=== PATIENT | female | born 1935 | race African-American/Black ===

== ENCOUNTER 2018-07-24 06:54 | Inpatient (IN) ==
[2018-07-24] MEDS ORDERED: SODIUM CHLORIDE 0.9% 1,000 ML IV STA (07:26)
[2018-07-24] MEDS ORDERED: INSULIN REGULAR 100 UNIT/ML IV STA ×2 (07:26→08:10)
[2018-07-24 07:39] LABS: Apearance,Urine CLOUDY (Clear); Bacteria,Urine Occasional /HPF (Few); Bilirubin,Urine Negative (Negative); Blood, Urine Small mg/dL (Negative); Glucose,Urine (UA) >=500 mg/dL (Negative); Ketones,Urine Negative (Negative); Mucus,Urine Occasional /LPF (Occasional); Nitrite,Urine Negative (Negative); Protein,Urine Negative; RBC,Urine 3 /HPF (0-4); Squamous Epithelial Cell,Urine Occasional /HPF (0-10); Urine Color Yellow (Yellow); Urine Specific Gravity 1.027 (1.001-1.035); Urine Urobilinogen < 2.0 EU/DL (0.2-1.0); WBC,Urine 124 /HPF (0-6)
[2018-07-24 07:45] LABS: PT Patient Result 10.6 SECS; Partial Thromboplastin Time 21.8 SECS (0-40)
[2018-07-24] MEDS ORDERED: INSULIN REGULAR 100 UNIT/ML ONE ×2 (07:46→08:11)
[2018-07-24 07:54] LABS: Barbiturates Screen,Urine Negative (Negative); Basophils % 0.1 % (0.0-0.8); Benzodiazepines Screen,Urine Negative (Negative); Cannabinoid Screen,Urine Negative (Negative); Hematocrit 45.5 VOL% (35.7-47.0); Hemoglobin 13.2 GM/DL (12.0-16.0); Immature Granulocytes % 0.3 %; Immature Granulocytes Absolute 0.03 #; Lymphocytes # 1.3 10*3/uL (1.4-4.0); Lymphocytes % 13.6 % (21.3-54.2); Mean Corpuscular Hemoglobin 28 PG (27-34); Mean Corpuscular Volume 97.2 FL (87-102); Mean Platelet Volume 12.2 FL (9.6-12.0); Monocytes # 0.5 10*3/uL (0.11-0.8); Neutrophils # 7.5 10*3/uL (1.4-7.4); Opiate Screen,Urine Negative (Negative); Phencyclidine Screen,Urine Negative (Negative); Platelet Count 262 T/CUMM (130-400); Red Blood Count 4.68 MC/CUMM (3.8-5.5); Red Cell Distribution Width 14.9 % (9.3-17.3); White Blood Count 9.3 T/CUMM (4-12)
[2018-07-24 07:59] LABS: Alanine Aminotransferase 73 U/L (13-56); Albumin 3.1 G/DL (3.4-5.0); Alkaline Phosphatase 167 U/L (45-117); Aspartate Amino Transferase 33 U/L (0-37); Bilirubin,Total < 0.39 MG/DL (0.2-1.0); Blood Urea Nitrogen 64 MG/DL (7-18); Calcium 9.3 MG/DL (8.5-10.1); Osmolality,Calculated 377.4 MOS/KG (273-304); Potassium 3.3 MMOL/L (3.5-5.1); Sodium 154 MMOL/L (136-145); Total Protein 8.2 G/DL (6.4-8.3); Troponin I < 0.015 NG/ML (0.00-0.045)
[2018-07-24 08:02] LABS: Glucose 1090 MG/DL (74-106)
[2018-07-24] MEDS ORDERED: SODIUM CHLORIDE 0.9% 2,000 ML IV STA (08:09)
[2018-07-24] MEDS ORDERED: LEVOFLOXACIN INJ 750 MG in PREMIX 1 EACH IV STA (08:10)
[2018-07-24] MEDS ORDERED: ALBUTEROL 2.5 MG/3 ML NEB RESP TX PRN (08:52)
[2018-07-24] MEDS ORDERED: MAGNESIUM SULF RIDER 2 GM in PREMIX 1 EACH IV PRN (08:56)
[2018-07-24] MEDS ORDERED: MAGNESIUM SULF RIDER 4 GM in PREMIX 1 EACH IV PRN (08:56)
[2018-07-24] MEDS ORDERED: SODIUM PHOSPHATE INJ 17 MMOL in SODIUM CHLORIDE 0.9% 250 ML IV PRN (08:56)
[2018-07-24] MEDS ORDERED: DEXTROSE 50% 25 GM/50 ML VIAL IV PRN ×2 (08:56)
[2018-07-24] MEDS ORDERED: SODIUM CHLORIDE 0.45% 1,000 ML IV SCH (09:00)
[2018-07-24] MEDS ORDERED: cefTRIAXone 1,000 MG in SYRINGE 1 EACH IV SCH (09:00)
[2018-07-24 09:39] LABS: ABG Base Excess -8.7 MMOL/L (-2.5-2.5); ABG HCO3 17.4 MMOL/L (20-26); ABG Oxygen Saturation 94.3 % (95-100); ABG PCO2 34.2 MM HG (35-48); ABG PH 7.302 (7.35-7.45); ABG PO2 80.9 MM HG (80-95); ABG TCO2 15.1 MMOL/L (23-27); Allen Test Positive; Pt O2 Delivery Device Room Air
[2018-07-24 11:37] LABS: Calcium 8.2 MG/DL (8.5-10.1); Osmolality,Calculated 373.6 MOS/KG (273-304)
[2018-07-24 11:39] LABS: Potassium 2.5 MMOL/L (3.5-5.1)
[2018-07-24] MEDS ORDERED: INSULIN REGULAR DRIP 100 ML IV SCH (13:00)
[2018-07-24] MEDS: SODIUM CHLOR 0.45% KCL 20 MEQ 20 MEQ/1,000 ML BAG IV SCH ×2 (14:30→22:20)
[2018-07-24] MEDS: PANTOPRAZOLE 40 MG VIAL IV SCH (15:07)
[2018-07-24] MEDS: ENOXAPARIN 30 MG/0.3 ML SYRINGE SUBCUT SCH (15:08)
[2018-07-24 17:22] LABS: Calcium 8.8 MG/DL (8.5-10.1); Osmolality,Calculated 354.6 MOS/KG (273-304); Potassium 2.9 MMOL/L (3.5-5.1)
[2018-07-24] MEDS: cefTRIAXone 1,000 MG in SYRINGE 1 EACH IV SCH (17:56)
[2018-07-24 22:11] LABS: Calcium 8.8 MG/DL (8.5-10.1); Osmolality,Calculated 345.5 MOS/KG (273-304); Potassium 3.2 MMOL/L (3.5-5.1)
[2018-07-25] MEDS ORDERED: INSULIN REGULAR 100 UNIT/ML SUBCUT SCH
[2018-07-25 03:21] LABS: Calcium 8.7 MG/DL (8.5-10.1); Osmolality,Calculated 345.3 MOS/KG (273-304); Potassium 3.7 MMOL/L (3.5-5.1)
[2018-07-25 03:31] LABS: Basophils % 0.2 % (0.0-0.8); Eosinophils % 0.1 % (0.00-10.9); Hematocrit 39.1 VOL% (35.7-47.0); Immature Granulocytes % 0.5 %; Immature Granulocytes Absolute 0.06 #; Lymphocytes # 2.8 10*3/uL (1.4-4.0); Lymphocytes % 22.7 % (21.3-54.2); Mean Corpuscular HGB Conc 29.2 GM/DL (32-36); Mean Corpuscular Hemoglobin 28 PG (27-34); Mean Corpuscular Volume 96.5 FL (87-102); Mean Platelet Volume 11.6 FL (9.6-12.0); Monocytes # 0.7 10*3/uL (0.11-0.8); Monocytes % 5.7 % (1.7-12.7); Neutrophils # 8.8 10*3/uL (1.4-7.4); Neutrophils % 70.8 % (38.7-73.9); Platelet Count 209 T/CUMM (130-400); Red Blood Count 4.05 MC/CUMM (3.8-5.5); Red Cell Distribution Width 14.7 % (9.3-17.3); White Blood Count 12.4 T/CUMM (4-12)
[2018-07-25 03:38] LABS: Hemoglobin 11.4 GM/DL (12.0-16.0)
[2018-07-25] MEDS: SODIUM CHLORIDE 0.45% 1,000 ML IV SCH ×3 (03:40→20:15)
[2018-07-25] MEDS: INSULIN REGULAR 100 UNIT/ML SUBCUT SCH ×5 (04:49→21:45)
[2018-07-25] MEDS: SODIUM CHLOR 0.45% KCL 20 MEQ 20 MEQ/1,000 ML BAG IV SCH ×2 (04:50→11:29)
[2018-07-25 07:56] LABS: Calcium 8.7 MG/DL (8.5-10.1); Osmolality,Calculated 337.9 MOS/KG (273-304); Potassium 3.6 MMOL/L (3.5-5.1)
[2018-07-25] MEDS: ENOXAPARIN 30 MG/0.3 ML SYRINGE SUBCUT SCH (09:22)
[2018-07-25] MEDS: PANTOPRAZOLE 40 MG VIAL IV SCH (09:22)
[2018-07-25 12:45] LABS: Calcium 8.6 MG/DL (8.5-10.1); Osmolality,Calculated 330.3 MOS/KG (273-304)
[2018-07-25] MEDS: cefTRIAXone 1,000 MG in SYRINGE 1 EACH IV SCH (17:39)
[2018-07-25 18:59] LABS: Calcium 8.3 MG/DL (8.5-10.1); Osmolality,Calculated 324.6 MOS/KG (273-304); Potassium 3.4 MMOL/L (3.5-5.1)
[2018-07-25] MEDS: LACTULOSE 20 GM/30 ML UDCUP PO SCH (21:55)
[2018-07-25] MEDS: ATORVASTATIN 20 MG TABLET PO SCH (21:55)
[2018-07-25] MEDS: DIVALPROEX SPRINKLE 125 MG CAPSULE PO SCH (21:55)
[2018-07-25] MEDS: PANTOPRAZOLE 40 MG TABLET PO SCH (21:55)
[2018-07-25] MEDS: CALCIUM (CARBONATE)/VITAMIN D 600 MG-400 UNIT TABLET PO SCH (21:55)
[2018-07-25] MEDS: BISACODYL 10 MG SUPP RECTAL SCH (23:22)
[2018-07-26] MEDS: INSULIN REGULAR 100 UNIT/ML SUBCUT SCH ×6 (00:03→20:44)
[2018-07-26 05:41] LABS: Calcium 8.3 MG/DL (8.5-10.1); Osmolality,Calculated 313.2 MOS/KG (273-304); Potassium 3.3 MMOL/L (3.5-5.1)
[2018-07-26] MEDS: SODIUM CHLORIDE 0.45% 1,000 ML IV SCH ×3 (05:44→22:12)
[2018-07-26 05:52] LABS: Basophils % 0.1 % (0.0-0.8); Eosinophils % 0.1 % (0.00-10.9); Hemoglobin 9.9 GM/DL (12.0-16.0); Immature Granulocytes % 0.3 %; Immature Granulocytes Absolute 0.03 #; Lymphocytes # 3.3 10*3/uL (1.4-4.0); Lymphocytes % 38.4 % (21.3-54.2); Mean Corpuscular HGB Conc 29.1 GM/DL (32-36); Mean Corpuscular Hemoglobin 28 PG (27-34); Mean Corpuscular Volume 95.5 FL (87-102); Mean Platelet Volume 12.2 FL (9.6-12.0); Monocytes # 0.5 10*3/uL (0.11-0.8); Monocytes % 5.3 % (1.7-12.7); Neutrophils # 4.8 10*3/uL (1.4-7.4); Neutrophils % 55.8 % (38.7-73.9); Platelet Count 171 T/CUMM (130-400); Red Blood Count 3.56 MC/CUMM (3.8-5.5); Red Cell Distribution Width 14.6 % (9.3-17.3); White Blood Count 8.7 T/CUMM (4-12)
[2018-07-26 06:01] LABS: Hematocrit 33.5 VOL% (35.7-47.0)
[2018-07-26] MEDS: PANTOPRAZOLE 40 MG TABLET PO SCH ×2 (06:26→20:44)
[2018-07-26 06:56] LABS: Calcium 8.1 MG/DL (8.5-10.1); Osmolality,Calculated 309.4 MOS/KG (273-304); Potassium 3.5 MMOL/L (3.5-5.1)
[2018-07-26] MEDS: CALCIUM (CARBONATE)/VITAMIN D 600 MG-400 UNIT TABLET PO SCH ×2 (09:43→20:44)
[2018-07-26] MEDS: CHOLECALCIFEROL 1,000 UNIT TABLET PO SCH (09:43)
[2018-07-26] MEDS: ESCITALOPRAM 10 MG TABLET PO SCH (09:44)
[2018-07-26] MEDS: ENOXAPARIN 30 MG/0.3 ML SYRINGE SUBCUT SCH (09:44)
[2018-07-26] MEDS: LACTULOSE 20 GM/30 ML UDCUP PO SCH ×2 (09:44→20:44)
[2018-07-26] MEDS: POLYETHYLENE GLYCOL POWDER 17 GM PACK PO SCH (09:45)
[2018-07-26] MEDS: DIVALPROEX SPRINKLE 125 MG CAPSULE PO SCH ×2 (09:45→20:44)
[2018-07-26 12:31] LABS: Calcium 7.8 MG/DL (8.5-10.1); Osmolality,Calculated 300.3 MOS/KG (273-304); Potassium 4.5 MMOL/L (3.5-5.1)
[2018-07-26] MEDS: cefTRIAXone 1,000 MG in SYRINGE 1 EACH IV SCH (17:12)
[2018-07-26 18:43] LABS: Calcium 8.1 MG/DL (8.5-10.1); Osmolality,Calculated 298.1 MOS/KG (273-304); Potassium 3.5 MMOL/L (3.5-5.1)
[2018-07-26] MEDS: PANTOPRAZOLE 40 MG VIAL IV SCH (19:21)
[2018-07-26] MEDS: ATORVASTATIN 20 MG TABLET PO SCH (20:44)
[2018-07-27] MEDS: INSULIN REGULAR 100 UNIT/ML SUBCUT SCH ×6 (00:50→21:34)
[2018-07-27 05:02] LABS: Calcium 8.3 MG/DL (8.5-10.1); Osmolality,Calculated 302.9 MOS/KG (273-304); Potassium 3.5 MMOL/L (3.5-5.1)
[2018-07-27] MEDS: SODIUM CHLORIDE 0.45% 1,000 ML IV SCH ×3 (05:07→17:58)
[2018-07-27] MEDS: PANTOPRAZOLE 40 MG TABLET PO SCH ×2 (06:28→21:40)
[2018-07-27] MEDS ORDERED: ENOXAPARIN 40 MG/0.4 ML SYRINGE SUBCUT SCH (09:00)
[2018-07-27] MEDS: POLYETHYLENE GLYCOL POWDER 17 GM PACK PO SCH (09:06)
[2018-07-27] MEDS: ESCITALOPRAM 10 MG TABLET PO SCH (09:06)
[2018-07-27] MEDS: CHOLECALCIFEROL 1,000 UNIT TABLET PO SCH (09:07)
[2018-07-27] MEDS: LACTULOSE 20 GM/30 ML UDCUP PO SCH ×2 (09:07→21:40)
[2018-07-27] MEDS: DIVALPROEX SPRINKLE 125 MG CAPSULE PO SCH ×2 (09:07→21:54)
[2018-07-27] MEDS: CALCIUM (CARBONATE)/VITAMIN D 600 MG-400 UNIT TABLET PO SCH ×2 (09:07→21:40)
[2018-07-27] MEDS ORDERED: SODIUM CHLORIDE 23.4% CONC INJ 38.5 MEQ in STERILE WATER INJ 1,000 ML IV SCH (10:30)
[2018-07-27 14:20] LABS: Calcium 8.3 MG/DL (8.5-10.1); Osmolality,Calculated 294.6 MOS/KG (273-304); Potassium 3.6 MMOL/L (3.5-5.1)
[2018-07-27] MEDS ORDERED: DEXTROSE 50% 25 GM/50 ML VIAL IV PRN (17:32)
[2018-07-27] MEDS ORDERED: GLUCAGON 1 MG VIAL IM PRN (17:32)
[2018-07-27] MEDS: BISACODYL 10 MG SUPP RECTAL SCH (18:06)
[2018-07-27] MEDS: cefTRIAXone 1,000 MG in SYRINGE 1 EACH IV SCH (21:35)
[2018-07-27] MEDS: ATORVASTATIN 20 MG TABLET PO SCH (21:40)
[2018-07-28] MEDS: INSULIN REGULAR 100 UNIT/ML SUBCUT SCH ×6 (01:39→20:53)
[2018-07-28 05:38] LABS: Basophils % 0.2 % (0.0-0.8); Eosinophils # 0.1 10*3/uL (0.0-0.87); Eosinophils % 2.2 % (0.00-10.9); Hematocrit 31.8 VOL% (35.7-47.0); Hemoglobin 9.8 GM/DL (12.0-16.0); Immature Granulocytes % 0.8 %; Immature Granulocytes Absolute 0.04 #; Lymphocytes # 1.9 10*3/uL (1.4-4.0); Lymphocytes % 37.2 % (21.3-54.2); Mean Corpuscular HGB Conc 30.8 GM/DL (32-36); Mean Corpuscular Hemoglobin 28 PG (27-34); Mean Corpuscular Volume 90.3 FL (87-102); Mean Platelet Volume 11.4 FL (9.6-12.0); Monocytes # 0.3 10*3/uL (0.11-0.8); Monocytes % 5.9 % (1.7-12.7); Neutrophils # 2.8 10*3/uL (1.4-7.4); Neutrophils % 53.7 % (38.7-73.9); Platelet Count 133 T/CUMM (130-400); Red Blood Count 3.52 MC/CUMM (3.8-5.5); Red Cell Distribution Width 13.8 % (9.3-17.3); White Blood Count 5.1 T/CUMM (4-12)
[2018-07-28] MEDS: PANTOPRAZOLE 40 MG TABLET PO SCH ×2 (05:42→21:31)
[2018-07-28 06:05] LABS: Calcium 7.9 MG/DL (8.5-10.1); Osmolality,Calculated 300.3 MOS/KG (273-304); Potassium 3.2 MMOL/L (3.5-5.1)
[2018-07-28] MEDS: SODIUM CHLORIDE 0.45% 1,000 ML IV SCH ×3 (08:54→22:36)
[2018-07-28] MEDS: CHOLECALCIFEROL 1,000 UNIT TABLET PO SCH (09:33)
[2018-07-28] MEDS: LACTULOSE 20 GM/30 ML UDCUP PO SCH ×2 (09:33→21:33)
[2018-07-28] MEDS: DIVALPROEX SPRINKLE 125 MG CAPSULE PO SCH (09:33)
[2018-07-28] MEDS: POLYETHYLENE GLYCOL POWDER 17 GM PACK PO SCH (09:34)
[2018-07-28] MEDS: CALCIUM (CARBONATE)/VITAMIN D 600 MG-400 UNIT TABLET PO SCH ×2 (09:34→21:31)
[2018-07-28] MEDS: POTASSIUM CHLORIDE 20 MEQ TABLET PO SCH ×2 (09:35→12:34)
[2018-07-28] MEDS: ESCITALOPRAM 10 MG TABLET PO SCH (09:35)
[2018-07-28] MEDS: INSULIN GLARGINE 100 UNIT/ML SUBCUT SCH (10:23)
[2018-07-28] MEDS: VALPROIC ACID 250 MG/5 ML UDCUP PO SCH ×2 (12:34→21:32)
[2018-07-28] MEDS: cefTRIAXone 1,000 MG in SYRINGE 1 EACH IV SCH (21:24)
[2018-07-28] MEDS: ATORVASTATIN 20 MG TABLET PO SCH (21:31)
[2018-07-29] MEDS: INSULIN REGULAR 100 UNIT/ML SUBCUT SCH ×6 (00:35→21:39)
[2018-07-29] MEDS: PANTOPRAZOLE 40 MG TABLET PO SCH ×2 (05:15→21:45)
[2018-07-29 05:20] LABS: Calcium 8.1 MG/DL (8.5-10.1); Osmolality,Calculated 293.6 MOS/KG (273-304)
[2018-07-29] MEDS: LACTULOSE 20 GM/30 ML UDCUP PO SCH ×2 (08:49→21:46)
[2018-07-29] MEDS: POLYETHYLENE GLYCOL POWDER 17 GM PACK PO SCH (08:50)
[2018-07-29] MEDS: CHOLECALCIFEROL 1,000 UNIT TABLET PO SCH (08:50)
[2018-07-29] MEDS: ESCITALOPRAM 10 MG TABLET PO SCH (08:50)
[2018-07-29] MEDS: POTASSIUM CHLORIDE 20 MEQ/15 ML UDCUP NG SCH ×2 (08:50→21:46)
[2018-07-29] MEDS: CALCIUM (CARBONATE)/VITAMIN D 600 MG-400 UNIT TABLET PO SCH ×2 (08:50→21:45)
[2018-07-29] MEDS: VALPROIC ACID 250 MG/5 ML UDCUP PO SCH ×2 (08:50→21:45)
[2018-07-29] MEDS: INSULIN GLARGINE 100 UNIT/ML SUBCUT SCH (08:51)
[2018-07-29] MEDS: cefTRIAXone 1,000 MG in SYRINGE 1 EACH IV SCH (21:39)
[2018-07-29] MEDS: ATORVASTATIN 20 MG TABLET PO SCH (21:45)
[2018-07-30] MEDS: INSULIN REGULAR 100 UNIT/ML SUBCUT SCH ×3 (00:40→10:01)
[2018-07-30 05:12] LABS: Calcium 8.7 MG/DL (8.5-10.1); Osmolality,Calculated 288.6 MOS/KG (273-304); Prealbumin 14.5 MG/DL (20-40)
[2018-07-30] MEDS: PANTOPRAZOLE 40 MG TABLET PO SCH (05:47)
[2018-07-30] MEDS ORDERED: KETAMINE 500 MG/10 ML VIAL ONE (07:47)
[2018-07-30] MEDS ORDERED: LANSOPRAZOLE ODT 30 MG TABLET PEG SCH (09:00)
[2018-07-30] MEDS ORDERED: ETOMIDATE 20 MG/10 ML VIAL IV ONE (10:00)
[2018-07-30] MEDS ORDERED: PROPOFOL 200 MG/20 ML VIAL IV ONE (10:00)
[2018-07-30] MEDS ORDERED: LIDOCAINE 100 MG/5 ML SYRINGE ONE (10:00)
[2018-07-30] MEDS: INSULIN GLARGINE 100 UNIT/ML SUBCUT SCH (10:01)
[2018-07-30] MEDS: CHOLECALCIFEROL 1,000 UNIT TABLET PO SCH (11:21)
[2018-07-30] MEDS: VALPROIC ACID 250 MG/5 ML UDCUP PO SCH (11:22)
[2018-07-30] MEDS: LACTULOSE 20 GM/30 ML UDCUP PO SCH (11:23)
[2018-07-30] MEDS: CALCIUM (CARBONATE)/VITAMIN D 600 MG-400 UNIT TABLET PO SCH (11:23)
[2018-07-30] MEDS: POLYETHYLENE GLYCOL POWDER 17 GM PACK PO SCH (11:23)
[2018-07-30] MEDS: ESCITALOPRAM 10 MG TABLET PO SCH (11:23)
[2018-07-30] MEDS: POTASSIUM CHLORIDE 20 MEQ/15 ML UDCUP NG SCH (11:23)
[2018-07-30 11:41] VITALS: BP 143/65
== END 2018-07-30 12:00 | DRG 638 ==
LOC: EDUNIT# → EDBD → N.ED 06:54 → N.EDINP 08:50 → SUATTDRO 08:50 → N.CC 22:08 → N.2E 07-26 17:59
PROVIDERS: ADMIT Internal Medicine; ATTEND Internal Medicine
PROC: EGDWPEG (ICD-10-PCS; 2018-07-30 08:35)

== ENCOUNTER 2019-07-03 19:16 | Observation (INO) ==
[2019-07-03] MEDS ORDERED: PANTOPRAZOLE 40 MG VIAL IV STA (19:42)
[2019-07-03] MEDS ORDERED: ONDANSETRON 4 MG/2 ML VIAL IV STA (19:42)
[2019-07-03] MEDS ORDERED: SODIUM CHLORIDE 0.9% 500 ML IV STA (19:42)
[2019-07-03 20:24] LABS: Basophils % 0.2 % (0.0-0.8); Eosinophils % 0.4 % (0.00-10.9); Hematocrit 41.9 VOL% (35.7-47.0); Hemoglobin 12.8 GM/DL (12.0-16.0); Immature Granulocytes % 0.4 %; Immature Granulocytes Absolute 0.04 #; Lymphocytes # 2.1 10*3/uL (1.4-4.0); Lymphocytes % 21.5 % (21.3-54.2); Mean Corpuscular HGB Conc 30.5 GM/DL (32-36); Mean Corpuscular Volume 93.7 FL (87-102); Mean Platelet Volume 10.4 FL (9.6-12.0); Monocytes % 4.9 % (1.7-12.7); Neutrophils % 72.6 % (38.7-73.9); Platelet Count 246 T/CUMM (130-400); Red Blood Count 4.47 MC/CUMM (3.8-5.5); Red Cell Distribution Width 13.7 % (9.3-17.3); White Blood Count 9.7 T/CUMM (4-12)
[2019-07-03 20:56] LABS: Alanine Aminotransferase 73 U/L (13-56); Albumin 3.3 G/DL (3.4-5.0); Alkaline Phosphatase 107 U/L (45-117); Amylase 56 U/L (25-115); Aspartate Amino Transferase 25 U/L (0-37); Bilirubin,Total < 0.39 MG/DL (0.2-1.0); Blood Urea Nitrogen 14 MG/DL (7-18); Calcium 8.9 MG/DL (8.5-10.1); Estimated Glom Filtration Rate 81 ML/MIN; Glucose 137 MG/DL (74-106); Osmolality,Calculated 281.4 MOS/KG (273-304); Total Protein 7.3 G/DL (6.4-8.3)
[2019-07-03 21:07] LABS: Apearance,Urine CLOUDY (Clear); Bacteria,Urine Few /HPF (Few); Bilirubin,Urine Negative (Negative); Blood, Urine Small mg/dL (Negative); Glucose,Urine (UA) Negative (Negative); Ketones,Urine Negative (Negative); Mucus,Urine Few /LPF (Occasional); Nitrite,Urine Positive (Negative); Protein,Urine Negative; RBC,Urine 17 /HPF (0-4); Squamous Epithelial Cell,Urine Occasional /HPF (0-10); Urine Color Yellow (Yellow); Urine Specific Gravity 1.013 (1.001-1.035); Urine Urobilinogen < 2.0 EU/DL (0.2-1.0); WBC,Urine 318 /HPF (0-6)
[2019-07-03] MEDS ORDERED: LEVOFLOXACIN INJ 500 MG in PREMIX 1 EACH IV STA (22:23)
[2019-07-04] MEDS ORDERED: ONDANSETRON 4 MG/2 ML VIAL IV PRN (04:59)
[2019-07-04] MEDS ORDERED: ACETAMINOPHEN 325 MG TABLET PEG PRN (04:59)
[2019-07-04] MEDS ORDERED: LACTULOSE 20 GM/30 ML UDCUP PEG PRN (04:59)
[2019-07-04] MEDS ORDERED: PROMETHAZINE 25 MG/1 ML VIAL IM PRN (04:59)
[2019-07-04] MEDS ORDERED: SODIUM CHLORIDE 0.9% 1,000 ML IV SCH (05:00)
[2019-07-04] MEDS ORDERED: DEXTROSE 50% 25 GM/50 ML SYRINGE IV PRN (05:13)
[2019-07-04] MEDS ORDERED: GLUCAGON 1 MG VIAL IM PRN (05:13)
[2019-07-04] MEDS ORDERED: DEXTROSE 5% NACL 0.9% 1,000 ML IV SCH (05:30)
[2019-07-04 07:16] LABS: Basophils % 0.2 % (0.0-0.8); Eosinophils # 0.2 10*3/uL (0.0-0.87); Eosinophils % 1.9 % (0.00-10.9); Hematocrit 41.1 VOL% (35.7-47.0); Hemoglobin 12.8 GM/DL (12.0-16.0); Immature Granulocytes % 0.4 %; Immature Granulocytes Absolute 0.04 #; Lymphocytes # 2.4 10*3/uL (1.4-4.0); Lymphocytes % 25.4 % (21.3-54.2); Mean Corpuscular HGB Conc 31.1 GM/DL (32-36); Mean Corpuscular Volume 91.9 FL (87-102); Mean Platelet Volume 11.8 FL (9.6-12.0); Monocytes % 5.1 % (1.7-12.7); Platelet Count 174 T/CUMM (130-400); Red Blood Count 4.47 MC/CUMM (3.8-5.5); Red Cell Distribution Width 13.8 % (9.3-17.3); White Blood Count 9.3 T/CUMM (4-12)
[2019-07-04 07:29] LABS: Calcium 9.5 MG/DL (8.5-10.1); Osmolality,Calculated 277.4 MOS/KG (273-304)
[2019-07-04 07:39] LABS: Hypochromasia 1+; Ovalocytes Slight
[2019-07-04] MEDS: INSULIN LISPRO 100 UNIT/ML SUBCUT SCH ×2 (07:40→12:40)
[2019-07-04] MEDS ORDERED: POLYETHYLENE GLYCOL POWDER 17 GM PACK PO SCH ×2 (08:00→21:00)
[2019-07-04] MEDS ORDERED: ENOXAPARIN 40 MG/0.4 ML SYRINGE SUBCUT SCH (08:00)
[2019-07-04] MEDS ORDERED: LACTULOSE 20 GM/30 ML UDCUP PEG SCH (09:00)
[2019-07-04] MEDS ORDERED: DOCUSATE SODIUM 100 MG CAPSULE PO SCH (09:30)
[2019-07-04] MEDS ORDERED: POLYETHYLENE GLYCOL POWDER 17 GM PACK PO ONE (11:28)
[2019-07-04 16:21] VITALS: BP 116/67
[2019-07-04] MEDS ORDERED: LEVOFLOXACIN INJ 500 MG in PREMIX 1 EACH IV SCH (23:00)
[2019-07-05] MEDS ORDERED: BISACODYL 10 MG SUPP RECTAL SCH (19:00)
== END 2019-07-04 17:14 ==
LOC: EDBD → EDUNIT# → N.ED 19:16 → N.EDINP 19:16 → SUATTDRO 07-04 03:43 → N.5E 07-04 04:04
PROVIDERS: ADMIT Internal Medicine; ATTEND Internal Medicine

== ENCOUNTER 2020-07-26 13:20 | Inpatient (IN) ==
[2020-07-26] MEDS ORDERED: ONDANSETRON 4 MG/2 ML VIAL ONE (14:13)
[2020-07-26] MEDS ORDERED: ONDANSETRON 4 MG/2 ML VIAL IV STA (15:04)
[2020-07-26 15:12] LABS: Bilirubin,Urine Negative (Negative); Blood, Urine Negative (Negative); Glucose,Urine (UA) Negative (Negative); Ketones,Urine Negative (Negative); Mucus,Urine Occasional /LPF (Occasional); Nitrite,Urine Negative (Negative); Protein,Urine 30 MG/DL; Squamous Epithelial Cell,Urine Occasional /HPF (0-10); Urine Appearance Slightly Hazy (Clear); Urine Color Yellow (Yellow); Urine Specific Gravity 1.017 (1.001-1.035); Urine Urobilinogen < 2.0 EU/DL (0.2-1.0); WBC,Urine 19 /HPF (0-6)
[2020-07-26] MEDS ORDERED: PIPERACILLIN/TAZOBACTAM 3,375 MG in SODIUM CHLORIDE 0.9% 100 ML IV STA (15:22)
[2020-07-26 15:24] LABS: Albumin 3.3 G/DL (3.4-5.0); Bilirubin,Total 0.4 MG/DL (0.2-1.0); Calcium 9.4 MG/DL (8.5-10.1); Potassium 3.9 MMOL/L (3.5-5.1); Total Protein 7.4 G/DL (5.0-7.5)
[2020-07-26 15:26] LABS: Basophils % 0.1 % (0.0-0.8); Hematocrit 41.5 VOL% (35.7-47.0); Hemoglobin 12.8 GM/DL (12.0-16.0); Immature Granulocytes % 0.1 %; Immature Granulocytes Absolute 0.01 #; Lymphocytes # 1.4 10*3/uL (1.4-4.0); Lymphocytes % 19.6 % (21.3-54.2); Mean Corpuscular HGB Conc 30.8 GM/DL (32-36); Mean Corpuscular Volume 93.9 FL (87-102); Monocytes % 2.2 % (1.7-12.7); Platelet Count 233 T/CUMM (130-400); Red Blood Count 4.42 MC/CUMM (3.8-5.5); Red Cell Distribution Width 14.4 % (9.3-17.3); White Blood Count 7.2 T/CUMM (4-12)
[2020-07-26] MEDS ORDERED: SODIUM CHLORIDE 0.9% 1,000 ML IV STA (15:27)
[2020-07-26 15:31] LABS: Band Neutrophils 10 % (0-10); Eosinophils 1 % (0-10); Lymphocytes 18 % (20-55); Segmented Neutrophils 68 % (50-85); Total Cells Counted 100
[2020-07-26 15:32] LABS: Anisocytosis Slight; Hypochromasia Slight; Platelet Estimate Adequate; Polychromasia Few
[2020-07-26] MEDS ORDERED: GLUCAGON 1 MG VIAL IM PRN (16:08)
[2020-07-26] MEDS ORDERED: ONDANSETRON 4 MG/2 ML VIAL IV PRN (16:08)
[2020-07-26] MEDS ORDERED: DEXTROSE 50% 25 GM/50 ML VIAL IV PRN (16:08)
[2020-07-26] MEDS ORDERED: SODIUM PHOSPHATE ENEMA 133 ML BOTTLE RECTAL PRN (16:19)
[2020-07-26] MEDS: INSULIN LISPRO 100 UNIT/ML SUBCUT SCH ×2 (17:28→21:00)
[2020-07-26] MEDS: POTASSIUM CHLORIDE INJ 10 MEQ in SODIUM CHLORIDE 0.9% 1,000 ML IV SCH (18:06)
[2020-07-26] MEDS: ENOXAPARIN 40 MG/0.4 ML SYRINGE SUBCUT SCH (18:06)
[2020-07-26] MEDS: guaiFENesin 200 MG/10 ML UDCUP PO SCH (18:06)
[2020-07-26] MEDS: ALBUTEROL 2.5 MG/3 ML NEB RESP TX SCH (20:15)
[2020-07-26] MEDS: DOCUSATE SODIUM 100 MG/10 ML UDCUP PEG SCH (21:35)
[2020-07-26] MEDS: ACETAMINOPHEN 500 MG TABLET PEG SCH (21:35)
[2020-07-26] MEDS: LACTULOSE 20 GM/30 ML UDCUP PEG SCH (21:35)
[2020-07-26] MEDS: ATORVASTATIN 20 MG TABLET PEG SCH (21:35)
[2020-07-27] MEDS: PIPERACILLIN/TAZOBACTAM 3,375 MG in SODIUM CHLORIDE 0.9% 100 ML IV SCH ×3 (00:23→16:15)
[2020-07-27] MEDS: ALBUTEROL 2.5 MG/3 ML NEB RESP TX SCH ×4 (01:42→19:32)
[2020-07-27 03:51] LABS: Basophils % 0.2 % (0.0-0.8); Hematocrit 37.4 VOL% (35.7-47.0); Hemoglobin 11.3 GM/DL (12.0-16.0); Immature Granulocytes % 0.2 %; Immature Granulocytes Absolute 0.02 #; Lymphocytes # 1.5 10*3/uL (1.4-4.0); Lymphocytes % 17.8 % (21.3-54.2); Mean Corpuscular HGB Conc 30.2 GM/DL (32-36); Mean Corpuscular Volume 95.4 FL (87-102); Monocytes % 5.4 % (1.7-12.7); Neutrophils % 76.4 % (38.7-73.9); Platelet Count 242 T/CUMM (130-400); Red Blood Count 3.92 MC/CUMM (3.8-5.5); Red Cell Distribution Width 14.4 % (9.3-17.3); White Blood Count 8.6 T/CUMM (4-12)
[2020-07-27 04:10] LABS: Risk Ratio 1.78; VLDL CHOLESTEROL 11.6 MG/DL
[2020-07-27 04:12] LABS: Albumin 2.6 G/DL (3.4-5.0); Bilirubin,Total 0.7 MG/DL (0.2-1.0); Calcium 9.1 MG/DL (8.5-10.1); Osmolality,Calculated 287.8 MOS/KG (273-304); Total Protein 6.5 G/DL (5.0-7.5)
[2020-07-27 04:16] LABS: Band Neutrophils 16 % (0-10); Lymphocytes 21 % (20-55); Platelet Estimate Adequate; Segmented Neutrophils 56 % (50-85); Total Cells Counted 100
[2020-07-27 04:17] LABS: Hypochromasia 1+; Microcytosis 1+
[2020-07-27] MEDS: guaiFENesin 200 MG/10 ML UDCUP PO SCH ×2 (05:30→17:57)
[2020-07-27] MEDS: CHOLECALCIFEROL 1,000 UNIT TABLET PEG SCH (09:31)
[2020-07-27] MEDS: ACETAMINOPHEN 500 MG TABLET PEG SCH ×2 (09:31→22:42)
[2020-07-27] MEDS: ESCITALOPRAM 10 MG TABLET PEG SCH (09:32)
[2020-07-27] MEDS: LACTULOSE 20 GM/30 ML UDCUP PEG SCH ×2 (09:32→22:41)
[2020-07-27] MEDS: DOCUSATE SODIUM 100 MG/10 ML UDCUP PEG SCH ×2 (09:32→22:41)
[2020-07-27] MEDS: INSULIN LISPRO 100 UNIT/ML SUBCUT SCH ×4 (09:49→19:34)
[2020-07-27] MEDS: INSULIN GLARGINE 100 UNIT/ML SUBCUT SCH (09:49)
[2020-07-27] MEDS: POTASSIUM CHLORIDE INJ 10 MEQ in SODIUM CHLORIDE 0.9% 1,000 ML IV SCH (10:07)
[2020-07-27] MEDS ORDERED: SODIUM CHLORIDE 0.9% 500 ML IV ONE (11:41)
[2020-07-27] MEDS: SODIUM CHLORIDE 0.9% 1,000 ML IV SCH (12:36)
[2020-07-27] MEDS: VANCOMYCIN INJ 1,000 MG in SODIUM CHLORIDE 0.9% 250 ML IV SCH (14:17)
[2020-07-27] MEDS ORDERED: SODIUM CHLORIDE 0.9% 250 ML IV ONE (14:20)
[2020-07-27] MEDS: POLYETHYLENE GLYCOL POWDER 17 GM PACK PEG SCH (22:41)
[2020-07-27] MEDS: BISACODYL 10 MG SUPP RECTAL SCH (22:41)
[2020-07-27] MEDS: ENOXAPARIN 40 MG/0.4 ML SYRINGE SUBCUT SCH (22:42)
[2020-07-27] MEDS: ATORVASTATIN 20 MG TABLET PEG SCH (22:42)
[2020-07-28] MEDS: VANCOMYCIN INJ 1,000 MG in SODIUM CHLORIDE 0.9% 250 ML IV SCH ×3 (00:29→23:46)
[2020-07-28] MEDS: ALBUTEROL 2.5 MG/3 ML NEB RESP TX SCH ×4 (01:10→19:45)
[2020-07-28] MEDS: PIPERACILLIN/TAZOBACTAM 3,375 MG in SODIUM CHLORIDE 0.9% 100 ML IV SCH ×3 (02:16→16:34)
[2020-07-28 06:22] LABS: Basophils % 0.2 % (0.0-0.8); Eosinophils # 0.1 10*3/uL (0.0-0.87); Eosinophils % 0.9 % (0.00-10.9); Hematocrit 29.7 VOL% (35.7-47.0); Hemoglobin 9.1 GM/DL (12.0-16.0); Immature Granulocytes % 1.4 %; Immature Granulocytes Absolute 0.12 #; Lymphocytes # 2.1 10*3/uL (1.4-4.0); Lymphocytes % 23.7 % (21.3-54.2); Mean Corpuscular HGB Conc 30.6 GM/DL (32-36); Mean Corpuscular Volume 94.9 FL (87-102); Mean Platelet Volume 10.3 FL (9.6-12.0); Monocytes % 4.6 % (1.7-12.7); Neutrophils % 69.2 % (38.7-73.9); Platelet Count 200 T/CUMM (130-400); Red Blood Count 3.13 MC/CUMM (3.8-5.5); Red Cell Distribution Width 14.6 % (9.3-17.3); White Blood Count 8.7 T/CUMM (4-12)
[2020-07-28 06:42] LABS: Albumin 2.1 G/DL (3.4-5.0); Bilirubin,Total 0.4 MG/DL (0.2-1.0); Osmolality,Calculated 288.6 MOS/KG (273-304); Potassium 3.4 MMOL/L (3.5-5.1); Total Protein 5.7 G/DL (6.4-8.2)
[2020-07-28 06:47] LABS: Band Neutrophils 2 % (0-10); Hypochromasia 1+; Lymphocytes 25 % (20-55); Microcytosis 1+; Platelet Estimate Adequate; Segmented Neutrophils 70 % (50-85); Total Cells Counted 100
[2020-07-28] MEDS: INSULIN LISPRO 100 UNIT/ML SUBCUT SCH ×4 (07:29→21:23)
[2020-07-28] MEDS ORDERED: MAGNESIUM SULF RIDER 4 GM in PREMIX 1 EACH IV PRN (09:34)
[2020-07-28] MEDS ORDERED: MAGNESIUM SULF RIDER 2 GM in PREMIX 1 EACH IV PRN (09:34)
[2020-07-28] MEDS ORDERED: POTASSIUM CHLORIDE RIDER 10 MEQ in PREMIX 1 EACH IV PRN (09:34)
[2020-07-28] MEDS: ESCITALOPRAM 10 MG TABLET PEG SCH (10:06)
[2020-07-28] MEDS: POLYETHYLENE GLYCOL POWDER 17 GM PACK PEG SCH ×2 (10:06→21:03)
[2020-07-28] MEDS: CHOLECALCIFEROL 1,000 UNIT TABLET PEG SCH (10:06)
[2020-07-28] MEDS: LACTULOSE 20 GM/30 ML UDCUP PEG SCH ×3 (10:07→21:04)
[2020-07-28] MEDS: DOCUSATE SODIUM 100 MG/10 ML UDCUP PEG SCH ×2 (10:07→21:04)
[2020-07-28] MEDS: guaiFENesin 200 MG/10 ML UDCUP PO SCH ×2 (10:07→21:04)
[2020-07-28] MEDS: ACETAMINOPHEN 500 MG TABLET PEG SCH ×2 (10:07→21:04)
[2020-07-28] MEDS: INSULIN GLARGINE 100 UNIT/ML SUBCUT SCH (11:17)
[2020-07-28] MEDS: SODIUM CHLORIDE 0.9% 1,000 ML IV SCH (11:17)
[2020-07-28] MEDS: SODIUM CHLORIDE 0.45% 1,000 ML IV SCH (17:36)
[2020-07-28] MEDS: ATORVASTATIN 20 MG TABLET PEG SCH (21:04)
[2020-07-28] MEDS: ENOXAPARIN 40 MG/0.4 ML SYRINGE SUBCUT SCH (21:04)
[2020-07-29] MEDS: ALBUTEROL 2.5 MG/3 ML NEB RESP TX SCH ×4 (00:24→19:32)
[2020-07-29] MEDS: PIPERACILLIN/TAZOBACTAM 3,375 MG in SODIUM CHLORIDE 0.9% 100 ML IV SCH ×3 (01:06→15:44)
[2020-07-29] MEDS: VANCOMYCIN INJ 1,000 MG in SODIUM CHLORIDE 0.9% 250 ML IV SCH ×2 (01:30→12:36)
[2020-07-29 05:37] LABS: Basophils % 0.2 % (0.0-0.8); Eosinophils # 0.3 10*3/uL (0.0-0.87); Eosinophils % 3.5 % (0.00-10.9); Hematocrit 27.5 VOL% (35.7-47.0); Hemoglobin 8.6 GM/DL (12.0-16.0); Immature Granulocytes % 0.8 %; Immature Granulocytes Absolute 0.07 #; Lymphocytes # 2.1 10*3/uL (1.4-4.0); Lymphocytes % 24.8 % (21.3-54.2); Mean Corpuscular HGB Conc 31.3 GM/DL (32-36); Mean Corpuscular Volume 92.3 FL (87-102); Mean Platelet Volume 10.7 FL (9.6-12.0); Monocytes % 5.2 % (1.7-12.7); Neutrophils % 65.5 % (38.7-73.9); Platelet Count 186 T/CUMM (130-400); Red Blood Count 2.98 MC/CUMM (3.8-5.5); Red Cell Distribution Width 14.5 % (9.3-17.3); White Blood Count 8.3 T/CUMM (4-12)
[2020-07-29 06:01] LABS: Band Neutrophils 3 % (0-10); Eosinophils 1 % (0-10); Hypochromasia 1+; Lymphocytes 30 % (20-55); Segmented Neutrophils 60 % (50-85); Total Cells Counted 100
[2020-07-29 06:02] LABS: Microcytosis 1+; Ovalocytes Slight; Platelet Estimate Adequate
[2020-07-29 06:04] LABS: Calcium 8.8 MG/DL (8.5-10.1); Osmolality,Calculated 286.7 MOS/KG (273-304); Potassium 3.5 MMOL/L (3.5-5.1)
[2020-07-29] MEDS: INSULIN LISPRO 100 UNIT/ML SUBCUT SCH ×4 (08:13→21:13)
[2020-07-29] MEDS: ACETAMINOPHEN 500 MG TABLET PEG SCH (08:15)
[2020-07-29] MEDS: LACTULOSE 20 GM/30 ML UDCUP PEG SCH ×2 (08:15→21:12)
[2020-07-29] MEDS: DOCUSATE SODIUM 100 MG/10 ML UDCUP PEG SCH ×2 (08:15→21:12)
[2020-07-29] MEDS: POLYETHYLENE GLYCOL POWDER 17 GM PACK PEG SCH ×2 (08:15→21:13)
[2020-07-29] MEDS: CHOLECALCIFEROL 1,000 UNIT TABLET PEG SCH (08:16)
[2020-07-29] MEDS: ESCITALOPRAM 10 MG TABLET PEG SCH (08:17)
[2020-07-29] MEDS: INSULIN GLARGINE 100 UNIT/ML SUBCUT SCH (08:19)
[2020-07-29] MEDS: guaiFENesin 200 MG/10 ML UDCUP PO SCH ×2 (08:21→21:12)
[2020-07-29] MEDS: SODIUM CHLORIDE 0.45% 1,000 ML IV SCH (08:34)
[2020-07-29] MEDS ORDERED: ACETAMINOPHEN 500 MG TABLET PEG PRN (09:49)
[2020-07-29] MEDS: BISACODYL 10 MG SUPP RECTAL SCH (21:12)
[2020-07-29] MEDS: ATORVASTATIN 20 MG TABLET PEG SCH (21:12)
[2020-07-29] MEDS: ENOXAPARIN 40 MG/0.4 ML SYRINGE SUBCUT SCH (21:15)
[2020-07-30] MEDS: VANCOMYCIN INJ 1,000 MG in SODIUM CHLORIDE 0.9% 250 ML IV SCH
[2020-07-30] MEDS: PIPERACILLIN/TAZOBACTAM 3,375 MG in SODIUM CHLORIDE 0.9% 100 ML IV SCH ×3 (01:00→15:38)
[2020-07-30] MEDS: ALBUTEROL 2.5 MG/3 ML NEB RESP TX SCH ×4 (01:32→19:38)
[2020-07-30 06:05] LABS: Basophils % 0.3 % (0.0-0.8); Eosinophils # 0.2 10*3/uL (0.0-0.87); Eosinophils % 3.4 % (0.00-10.9); Hematocrit 29.4 VOL% (35.7-47.0); Hemoglobin 9.3 GM/DL (12.0-16.0); Immature Granulocytes % 0.7 %; Immature Granulocytes Absolute 0.05 #; Lymphocytes # 2.3 10*3/uL (1.4-4.0); Lymphocytes % 32.7 % (21.3-54.2); Mean Corpuscular HGB Conc 31.6 GM/DL (32-36); Mean Corpuscular Volume 93.9 FL (87-102); Mean Platelet Volume 10.9 FL (9.6-12.0); Neutrophils % 56.9 % (38.7-73.9); Platelet Count 235 T/CUMM (130-400); Red Blood Count 3.13 MC/CUMM (3.8-5.5); Red Cell Distribution Width 14.1 % (9.3-17.3)
[2020-07-30] MEDS: INSULIN LISPRO 100 UNIT/ML SUBCUT SCH ×4 (08:17→20:59)
[2020-07-30] MEDS: LACTULOSE 20 GM/30 ML UDCUP PEG SCH ×2 (09:05→20:57)
[2020-07-30] MEDS: guaiFENesin 200 MG/10 ML UDCUP PO SCH (09:05)
[2020-07-30] MEDS: ESCITALOPRAM 10 MG TABLET PEG SCH (09:05)
[2020-07-30] MEDS: INSULIN GLARGINE 100 UNIT/ML SUBCUT SCH (09:05)
[2020-07-30] MEDS: DOCUSATE SODIUM 100 MG/10 ML UDCUP PEG SCH ×2 (09:05→20:57)
[2020-07-30] MEDS: POLYETHYLENE GLYCOL POWDER 17 GM PACK PEG SCH ×2 (09:06→20:58)
[2020-07-30] MEDS: ATORVASTATIN 20 MG TABLET PEG SCH (20:58)
[2020-07-30] MEDS: guaiFENesin 200 MG/10 ML UDCUP PO PRN (20:58)
[2020-07-30] MEDS: ENOXAPARIN 40 MG/0.4 ML SYRINGE SUBCUT SCH (20:58)
[2020-07-31] MEDS: PIPERACILLIN/TAZOBACTAM 3,375 MG in SODIUM CHLORIDE 0.9% 100 ML IV SCH ×2 (00:06→10:00)
[2020-07-31] MEDS: ALBUTEROL 2.5 MG/3 ML NEB RESP TX SCH ×3 (01:13→13:52)
[2020-07-31] MEDS: INSULIN LISPRO 100 UNIT/ML SUBCUT SCH ×2 (07:12→11:08)
[2020-07-31] MEDS: POLYETHYLENE GLYCOL POWDER 17 GM PACK PEG SCH (08:35)
[2020-07-31] MEDS: guaiFENesin 200 MG/10 ML UDCUP PO PRN (08:36)
[2020-07-31] MEDS: DOCUSATE SODIUM 100 MG/10 ML UDCUP PEG SCH (08:37)
[2020-07-31] MEDS: LACTULOSE 20 GM/30 ML UDCUP PEG SCH (08:37)
[2020-07-31] MEDS: ESCITALOPRAM 10 MG TABLET PEG SCH (08:37)
[2020-07-31 11:26] VITALS: BP 134/72
== END 2020-07-31 14:51 | DRG 177 ==
LOC: EDBD → EDUNIT# → N.ED 13:20 → SUATTDRO 16:08 → N.EDINP 16:08 → N.5E 16:30
PROVIDERS: ADMIT Internal Medicine; ATTEND Internal Medicine

== ENCOUNTER 2022-01-29 10:29 | Observation (INO) ==
[2022-01-29 12:47] LABS: Alanine Aminotransferase 47 U/L (13-56); Albumin 3.2 G/DL (3.4-5.0); Alkaline Phosphatase 128 U/L (45-117); Aspartate Amino Transferase 27 U/L (0-37); Bilirubin,Total < 0.39 MG/DL (0.20-1.00); Blood Urea Nitrogen 20 MG/DL (7-18); Calcium 9.8 MG/DL (8.5-10.1); Carbon Dioxide 27 MMOL/L (21-32); Chloride 109 MMOL/L (98-107); Glucose 130 MG/DL (74-106); Osmolality,Calculated 287.1 MOS/KG (273-304); Potassium 3.5 MMOL/L (3.5-5.1); Sodium 142 MMOL/L (136-145)
[2022-01-29 13:33] LABS: Basophils % 0.3 % (0.0-0.8); Eosinophils # 0.1 10*3/uL (0.0-0.87); Eosinophils % 2.3 % (0.00-10.9); Hematocrit 41.2 VOL% (35.7-47.0); Hemoglobin 12.9 GM/DL (12.0-16.0); Immature Granulocytes % 0.2 %; Immature Granulocytes Absolute 0.01 #; Lymphocytes # 2.4 10*3/uL (1.4-4.0); Lymphocytes % 39.4 % (21.3-54.2); Mean Corpuscular HGB Conc 31.3 GM/DL (32-36); Mean Corpuscular Volume 91.2 FL (87-102); Monocytes # 0.5 10*3/uL (0.11-0.8); Monocytes % 8.7 % (1.7-12.7); Neutrophils % 49.1 % (38.7-73.9); Platelet Count 190 T/CUMM (130-400); Red Blood Count 4.52 MC/CUMM (3.8-5.5); Red Cell Distribution Width 14.3 % (9.3-17.3); White Blood Count 6.1 T/CUMM (4-12)
[2022-01-29] MEDS ORDERED: DEXTROSE 10% 250 ML BAG IV PRN (16:33)
[2022-01-29] MEDS ORDERED: GLUCAGON 1 MG VIAL IM PRN (16:33)
[2022-01-29] MEDS ORDERED: hydrALAZINE 20 MG/1 ML VIAL IV PRN (16:33)
[2022-01-29] MEDS ORDERED: ONDANSETRON 4 MG/2 ML VIAL IV PRN (16:33)
[2022-01-29] MEDS ORDERED: ACETAMINOPHEN 325 MG TABLET PO PRN (16:33)
[2022-01-29] MEDS ORDERED: POTASSIUM CHLORIDE 20 MEQ TABLET PO ONE (16:54)
[2022-01-29] MEDS ORDERED: LACTATED RINGERS 1,000 ML IV SCH (17:00)
[2022-01-29] MEDS ORDERED: ENOXAPARIN 40 MG/0.4 ML SYRINGE SUBCUT SCH (18:00)
[2022-01-29 19:24] LABS: RBC,Urine <1 /HPF (0-4); Squamous Epithelial Cell,Urine Occasional /HPF (0-10)
[2022-01-29 19:25] LABS: Bilirubin,Urine Negative (Negative); Blood, Urine Negative (Negative); Glucose,Urine (UA) Negative (Negative); Ketones,Urine Negative (Negative); Nitrite,Urine Negative (Negative); Protein,Urine Negative (Negative); Urine Appearance Clear (Clear); Urine Color Yellow (Yellow)
[2022-01-29] MEDS: LACTULOSE 20 GM/30 ML UDCUP PEG SCH (19:27)
[2022-01-29] MEDS: INSULIN LISPRO 100 UNIT/ML SUBCUT SCH (19:33)
[2022-01-29] MEDS: METOCLOPRAMIDE 10 MG/10 ML UDCUP PEG SCH (20:47)
[2022-01-29] MEDS: POLYETHYLENE GLYCOL POWDER 17 GM PACK PEG SCH (20:47)
[2022-01-29] MEDS: DOCUSATE SODIUM 100 MG CAPSULE PO SCH (20:47)
[2022-01-30] MEDS: INSULIN LISPRO 100 UNIT/ML SUBCUT SCH ×3 (00:43→12:41)
[2022-01-30] MEDS: LACTULOSE 20 GM/30 ML UDCUP PEG SCH ×2 (00:44→09:39)
[2022-01-30 04:09] LABS: Calcium 9.3 MG/DL (8.5-10.1); Osmolality,Calculated 286.1 MOS/KG (273-304); Potassium 3.4 MMOL/L (3.5-5.1)
[2022-01-30 04:30] LABS: Basophils % 0.3 % (0.0-0.8); Eosinophils # 0.1 10*3/uL (0.0-0.87); Eosinophils % 2.3 % (0.00-10.9); Hematocrit 37.5 VOL% (35.7-47.0); Hemoglobin 11.7 GM/DL (12.0-16.0); Immature Granulocytes % 0.3 %; Immature Granulocytes Absolute 0.02 #; Lymphocytes # 2.3 10*3/uL (1.4-4.0); Lymphocytes % 38.9 % (21.3-54.2); Mean Corpuscular HGB Conc 31.2 GM/DL (32-36); Mean Corpuscular Volume 93.3 FL (87-102); Mean Platelet Volume 12.4 FL (9.6-12.0); Monocytes # 0.5 10*3/uL (0.11-0.8); Monocytes % 8.3 % (1.7-12.7); Neutrophils % 49.9 % (38.7-73.9); Platelet Count 243 T/CUMM (130-400); Red Blood Count 4.02 MC/CUMM (3.8-5.5); Red Cell Distribution Width 14.4 % (9.3-17.3)
[2022-01-30] MEDS ORDERED: ESCITALOPRAM 10 MG TABLET PEG SCH (08:00)
[2022-01-30] MEDS ORDERED: POTASSIUM BICARB EFFERVESCENT 20 MEQ TAB.EFF PO ONE (08:12)
[2022-01-30] MEDS ORDERED: MINERAL OIL ENEMA 133 ML BOTTLE RECTAL PRN (08:20)
[2022-01-30] MEDS ORDERED: CHOLECALCIFEROL 1,000 UNIT TABLET PEG SCH (09:00)
[2022-01-30] MEDS ORDERED: PANTOPRAZOLE 40 MG VIAL IV SCH (09:00)
[2022-01-30] MEDS: DOCUSATE SODIUM 100 MG CAPSULE PO SCH (09:39)
[2022-01-30] MEDS: POLYETHYLENE GLYCOL POWDER 17 GM PACK PEG SCH ×2 (09:39→15:16)
[2022-01-30] MEDS: METOCLOPRAMIDE 10 MG/10 ML UDCUP PEG SCH (09:39)
[2022-01-30 16:06] VITALS: BP 153/61
== END 2022-01-30 16:50 ==
LOC: N.ED 10:29 → N.EDINP 10:29 → N.5E 01-30 05:45
PROVIDERS: ADMIT Internal Medicine; ATTEND Internal Medicine

== ENCOUNTER 2022-04-25 19:35 | Inpatient (IN) ==
[2022-04-25] MEDS ORDERED: SODIUM CHLORIDE 0.9% 1,000 ML IV STA (20:13)
[2022-04-25 21:00] LABS: Arterial Base Excess iSTAT -1 MMOL/L (-2.5-2.5); Arterial Bicarbonate iSTAT 24.1 MMOL/L (20-26); Arterial O2 Saturation iSTAT 93 % (95-100); Arterial PCO2 iSTAT 43 MM HG (35-48); Arterial PO2 iSTAT 71 MM HG (80-95); Arterial Total CO2 iSTAT 25 MMO/L (23-27); Arterial pH iSTAT 7.361 (7.35-7.45)
[2022-04-25 21:22] LABS: Bilirubin,Urine Negative (Negative); Blood, Urine Negative (Negative); Glucose,Urine (UA) Negative (Negative); Ketones,Urine Negative (Negative); Nitrite,Urine Negative (Negative); Protein,Urine Negative (Negative); Urine Appearance Clear (Clear); Urine Color Yellow (Yellow); Urine Specific Gravity 1.015 (1.001-1.035); Urine Urobilinogen 0.2 eU/dL (<2.0); Urine pH 5.5 (4.5-8.0)
[2022-04-25 21:25] LABS: Amorphous Crystals,Urine Few /HPF (Few); Mucus,Urine Occasional /LPF (Occasional); Squamous Epithelial Cell,Urine Occasional /HPF (0-10)
[2022-04-25 21:50] LABS: Basophils % 0.3 % (0.0-0.8); Eosinophils % 0.3 % (0.00-10.9); Hematocrit 43.4 VOL% (35.7-47.0); Immature Granulocytes % 1.1 %; Immature Granulocytes Absolute 0.13 #; Lymphocytes # 1.8 10*3/uL (1.4-4.0); Lymphocytes % 15.3 % (21.3-54.2); Mean Platelet Volume 11.4 FL (9.6-12.0); Monocytes # 0.5 10*3/uL (0.11-0.8); Monocytes % 4.3 % (1.7-12.7); Neutrophils % 78.7 % (38.7-73.9); Platelet Count 253 T/CUMM (130-400); Red Blood Count 4.57 MC/CUMM (3.8-5.5); Red Cell Distribution Width 14.1 % (9.3-17.3); White Blood Count 11.6 T/CUMM (4-12)
[2022-04-25 21:53] LABS: INR 0.9; PT Patient Result 10.5 SECS (10.1-12.1)
[2022-04-25 21:54] LABS: Alanine Aminotransferase 44 U/L (13-56); Albumin 3.6 G/DL (3.4-5.0); Alkaline Phosphatase 139 U/L (45-117); Aspartate Amino Transferase 24 U/L (0-37); Bilirubin,Total < 0.39 MG/DL (0.20-1.00); Blood Urea Nitrogen 22 MG/DL (7-18); Calcium 9.7 MG/DL (8.5-10.1); Carbon Dioxide 27 MMOL/L (21-32); Chloride 107 MMOL/L (98-107); Glucose 198 MG/DL (74-106); Potassium 3.5 MMOL/L (3.5-5.1); Sodium 143 MMOL/L (136-145); Total Protein 8.1 G/DL (6.4-8.2)
[2022-04-25] MEDS ORDERED: VANCOMYCIN INJ 1,000 MG in SODIUM CHLORIDE 0.9% 250 ML IV STA (23:37)
[2022-04-25] MEDS ORDERED: PIPERACILLIN/TAZOBACTAM 3,375 MG in SODIUM CHLORIDE 0.9% 100 ML IV STA (23:37)
[2022-04-26] MEDS ORDERED: ONDANSETRON 4 MG/2 ML VIAL IV PRN (02:22)
[2022-04-26] MEDS ORDERED: hydrALAZINE 20 MG/1 ML VIAL IV PRN (02:22)
[2022-04-26] MEDS ORDERED: LACTATED RINGERS 1,000 ML IV SCH (02:45)
[2022-04-26 06:27] LABS: Basophils % 0.1 % (0.0-0.8); Eosinophils % 0.1 % (0.00-10.9); Hemoglobin 12.7 GM/DL (12.0-16.0); Immature Granulocytes % 0.5 %; Immature Granulocytes Absolute 0.08 #; Lymphocytes # 0.7 10*3/uL (1.4-4.0); Lymphocytes % 4.7 % (21.3-54.2); Mean Corpuscular Volume 93.8 FL (87-102); Mean Platelet Volume 11.4 FL (9.6-12.0); Monocytes # 0.5 10*3/uL (0.11-0.8); Monocytes % 3.5 % (1.7-12.7); Neutrophils % 91.1 % (38.7-73.9); Platelet Count 195 T/CUMM (130-400); Red Blood Count 4.37 MC/CUMM (3.8-5.5); White Blood Count 15.6 T/CUMM (4-12)
[2022-04-26 06:41] LABS: Calcium 9.4 MG/DL (8.5-10.1); Osmolality,Calculated 289.3 MOS/KG (273-304); Potassium 4.2 MMOL/L (3.5-5.1)
[2022-04-26 06:47] LABS: Band Neutrophils 6 % (0-10); Lymphocytes 8 % (20-55); Total Cells Counted 100
[2022-04-26 06:48] LABS: Hypochromia Slight; Platelet Estimate Adequate
[2022-04-26] MEDS: INSULIN LISPRO 100 UNIT/ML SUBCUT SCH ×3 (06:48→17:04)
[2022-04-26] MEDS: PANTOPRAZOLE 40 MG VIAL IV SCH (08:55)
[2022-04-26] MEDS: amLODIPine 2.5 MG TABLET PEG SCH (08:55)
[2022-04-26] MEDS ORDERED: PANTOPRAZOLE 40 MG TABLET PO SCH (09:00)
[2022-04-26] MEDS: PIPERACILLIN/TAZOBACTAM 3,375 MG in SODIUM CHLORIDE 0.9% 100 ML IV SCH ×3 (09:11→23:00)
[2022-04-26] MEDS: ALBUTEROL/IPRATROPIUM 3 ML NEB RESP TX SCH ×3 (09:19→19:40)
[2022-04-26] MEDS: LACTULOSE 20 GM/30 ML UDCUP PEG SCH ×2 (16:24→21:20)
[2022-04-26] MEDS: VANCOMYCIN INJ 1,000 MG in SODIUM CHLORIDE 0.9% 250 ML IV SCH (17:49)
[2022-04-26] MEDS: METOCLOPRAMIDE 10 MG/10 ML UDCUP PEG SCH (21:20)
[2022-04-26] MEDS: ENOXAPARIN 40 MG/0.4 ML SYRINGE SUBCUT SCH (21:20)
[2022-04-26] MEDS: POLYETHYLENE GLYCOL POWDER 17 GM PACK PEG SCH (21:20)
[2022-04-27] MEDS: ALBUTEROL/IPRATROPIUM 3 ML NEB RESP TX SCH ×4 (00:08→18:58)
[2022-04-27] MEDS: INSULIN LISPRO 100 UNIT/ML SUBCUT SCH ×4 (00:25→17:31)
[2022-04-27] MEDS: METOCLOPRAMIDE 10 MG/10 ML UDCUP PEG SCH ×4 (02:55→20:26)
[2022-04-27 05:27] LABS: Basophils % 0.2 % (0.0-0.8); Eosinophils # 0.1 10*3/uL (0.0-0.87); Eosinophils % 0.5 % (0.00-10.9); Hematocrit 33.4 VOL% (35.7-47.0); Hemoglobin 10.5 GM/DL (12.0-16.0); Immature Granulocytes % 0.4 %; Immature Granulocytes Absolute 0.05 #; Lymphocytes # 1.2 10*3/uL (1.4-4.0); Lymphocytes % 8.9 % (21.3-54.2); Mean Corpuscular HGB Conc 31.4 GM/DL (32-36); Mean Platelet Volume 11.6 FL (9.6-12.0); Monocytes # 0.5 10*3/uL (0.11-0.8); Monocytes % 4.1 % (1.7-12.7); Neutrophils % 85.9 % (38.7-73.9); Platelet Count 199 T/CUMM (130-400); Red Blood Count 3.59 MC/CUMM (3.8-5.5); White Blood Count 12.9 T/CUMM (4-12)
[2022-04-27 05:47] LABS: Calcium 9.5 MG/DL (8.5-10.1); Osmolality,Calculated 287.1 MOS/KG (273-304); Potassium 3.6 MMOL/L (3.5-5.1)
[2022-04-27] MEDS: PIPERACILLIN/TAZOBACTAM 3,375 MG in SODIUM CHLORIDE 0.9% 100 ML IV SCH ×2 (08:28→16:21)
[2022-04-27] MEDS: LACTULOSE 20 GM/30 ML UDCUP PEG SCH ×2 (08:29→20:26)
[2022-04-27] MEDS: PANTOPRAZOLE 40 MG VIAL IV SCH (08:30)
[2022-04-27] MEDS: ESCITALOPRAM 10 MG TABLET PEG SCH (08:31)
[2022-04-27] MEDS: amLODIPine 2.5 MG TABLET PEG SCH (08:31)
[2022-04-27] MEDS: POLYETHYLENE GLYCOL POWDER 17 GM PACK PEG SCH ×3 (08:31→20:26)
[2022-04-27] MEDS: VANCOMYCIN INJ 1,000 MG in SODIUM CHLORIDE 0.9% 250 ML IV SCH (12:10)
[2022-04-27] MEDS: ENOXAPARIN 40 MG/0.4 ML SYRINGE SUBCUT SCH (20:27)
[2022-04-28] MEDS: PIPERACILLIN/TAZOBACTAM 3,375 MG in SODIUM CHLORIDE 0.9% 100 ML IV SCH ×3 (00:08→16:24)
[2022-04-28] MEDS: INSULIN LISPRO 100 UNIT/ML SUBCUT SCH ×4 (00:32→17:49)
[2022-04-28] MEDS: FUROSEMIDE 20 MG TABLET PO SCH ×2 (00:32→09:57)
[2022-04-28] MEDS: ALBUTEROL/IPRATROPIUM 3 ML NEB RESP TX SCH ×4 (00:50→19:37)
[2022-04-28] MEDS: METOCLOPRAMIDE 10 MG/10 ML UDCUP PEG SCH ×4 (03:45→21:14)
[2022-04-28] MEDS: VANCOMYCIN INJ 1,000 MG in SODIUM CHLORIDE 0.9% 250 ML IV SCH (05:43)
[2022-04-28 06:03] LABS: Calcium 9.2 MG/DL (8.5-10.1); Potassium 3.7 MMOL/L (3.5-5.1)
[2022-04-28 06:16] LABS: Basophils % 0.3 % (0.0-0.8); Eosinophils # 0.2 10*3/uL (0.0-0.87); Eosinophils % 2.1 % (0.00-10.9); Hematocrit 34.2 VOL% (35.7-47.0); Hemoglobin 10.6 GM/DL (12.0-16.0); Immature Granulocytes % 0.6 %; Immature Granulocytes Absolute 0.06 #; Lymphocytes # 1.5 10*3/uL (1.4-4.0); Lymphocytes % 15.8 % (21.3-54.2); Mean Corpuscular Volume 94.7 FL (87-102); Mean Platelet Volume 11.1 FL (9.6-12.0); Monocytes # 0.5 10*3/uL (0.11-0.8); Monocytes % 5.6 % (1.7-12.7); Neutrophils % 75.6 % (38.7-73.9); Platelet Count 197 T/CUMM (130-400); Red Blood Count 3.61 MC/CUMM (3.8-5.5); Red Cell Distribution Width 14.2 % (9.3-17.3); White Blood Count 9.7 T/CUMM (4-12)
[2022-04-28] MEDS: POLYETHYLENE GLYCOL POWDER 17 GM PACK PEG SCH ×3 (09:47→21:14)
[2022-04-28] MEDS: LACTULOSE 20 GM/30 ML UDCUP PEG SCH ×2 (09:56→21:14)
[2022-04-28] MEDS: ESCITALOPRAM 10 MG TABLET PEG SCH (09:57)
[2022-04-28] MEDS: amLODIPine 2.5 MG TABLET PEG SCH (09:57)
[2022-04-28] MEDS: PANTOPRAZOLE 40 MG VIAL IV SCH (10:35)
[2022-04-28] MEDS: FUROSEMIDE 20 MG TABLET PEG SCH (21:14)
[2022-04-28] MEDS: ENOXAPARIN 40 MG/0.4 ML SYRINGE SUBCUT SCH (21:14)
[2022-04-29] MEDS: INSULIN LISPRO 100 UNIT/ML SUBCUT SCH ×4 (00:30→18:04)
[2022-04-29 01:06] LABS: Basophils % 0.2 % (0.0-0.8); Eosinophils # 0.2 10*3/uL (0.0-0.87); Eosinophils % 2.6 % (0.00-10.9); Hematocrit 34.4 VOL% (35.7-47.0); Hemoglobin 10.8 GM/DL (12.0-16.0); Immature Granulocytes % 1.6 %; Immature Granulocytes Absolute 0.13 #; Lymphocytes # 1.6 10*3/uL (1.4-4.0); Lymphocytes % 19.2 % (21.3-54.2); Mean Corpuscular HGB Conc 31.4 GM/DL (32-36); Mean Corpuscular Volume 93.5 FL (87-102); Mean Platelet Volume 11.8 FL (9.6-12.0); Monocytes # 0.5 10*3/uL (0.11-0.8); Neutrophils % 70.4 % (38.7-73.9); Platelet Count 207 T/CUMM (130-400); Red Blood Count 3.68 MC/CUMM (3.8-5.5); Red Cell Distribution Width 14.1 % (9.3-17.3); White Blood Count 8.1 T/CUMM (4-12)
[2022-04-29 01:23] LABS: Osmolality,Calculated 294.7 MOS/KG (273-304); Potassium 3.9 MMOL/L (3.5-5.1)
[2022-04-29] MEDS: ALBUTEROL/IPRATROPIUM 3 ML NEB RESP TX SCH ×4 (01:41→19:45)
[2022-04-29] MEDS: VANCOMYCIN INJ 1,000 MG in SODIUM CHLORIDE 0.9% 250 ML IV SCH ×3 (01:42→21:24)
[2022-04-29] MEDS: PIPERACILLIN/TAZOBACTAM 3,375 MG in SODIUM CHLORIDE 0.9% 100 ML IV SCH ×3 (02:50→17:15)
[2022-04-29] MEDS: METOCLOPRAMIDE 10 MG/10 ML UDCUP PEG SCH ×4 (03:50→21:50)
[2022-04-29] MEDS: amLODIPine 2.5 MG TABLET PEG SCH (10:50)
[2022-04-29] MEDS: LACTULOSE 20 GM/30 ML UDCUP PEG SCH ×2 (10:50→21:49)
[2022-04-29] MEDS: POLYETHYLENE GLYCOL POWDER 17 GM PACK PEG SCH ×3 (10:50→21:49)
[2022-04-29] MEDS: ESCITALOPRAM 10 MG TABLET PEG SCH (10:50)
[2022-04-29] MEDS: PANTOPRAZOLE 40 MG VIAL IV SCH (10:50)
[2022-04-29] MEDS: FUROSEMIDE 20 MG TABLET PEG SCH ×2 (10:50→21:50)
[2022-04-29] MEDS: ENOXAPARIN 40 MG/0.4 ML SYRINGE SUBCUT SCH (21:49)
[2022-04-30] MEDS: ALBUTEROL/IPRATROPIUM 3 ML NEB RESP TX SCH ×4 (00:03→18:53)
[2022-04-30] MEDS: PIPERACILLIN/TAZOBACTAM 3,375 MG in SODIUM CHLORIDE 0.9% 100 ML IV SCH ×3 (01:29→16:32)
[2022-04-30] MEDS: INSULIN LISPRO 100 UNIT/ML SUBCUT SCH ×5 (01:29→23:00)
[2022-04-30] MEDS: METOCLOPRAMIDE 10 MG/10 ML UDCUP PEG SCH ×4 (03:50→22:12)
[2022-04-30 05:03] LABS: Basophils % 0.5 % (0.0-0.8); Eosinophils # 0.3 10*3/uL (0.0-0.87); Hematocrit 33.1 VOL% (35.7-47.0); Hemoglobin 10.2 GM/DL (12.0-16.0); Immature Granulocytes % 2.7 %; Immature Granulocytes Absolute 0.17 #; Lymphocytes # 1.6 10*3/uL (1.4-4.0); Lymphocytes % 25.4 % (21.3-54.2); Mean Corpuscular HGB Conc 30.8 GM/DL (32-36); Mean Corpuscular Volume 94.3 FL (87-102); Mean Platelet Volume 11.1 FL (9.6-12.0); Monocytes # 0.6 10*3/uL (0.11-0.8); Monocytes % 9.5 % (1.7-12.7); NRBC # 0.02 10*3/uL; Neutrophils % 57.9 % (38.7-73.9); Platelet Count 234 T/CUMM (130-400); Red Blood Count 3.51 MC/CUMM (3.8-5.5); Red Cell Distribution Width 14.2 % (9.3-17.3); White Blood Count 6.2 T/CUMM (4-12)
[2022-04-30 05:20] LABS: Calcium 8.8 MG/DL (8.5-10.1); Osmolality,Calculated 298.4 MOS/KG (273-304); Potassium 3.6 MMOL/L (3.5-5.1)
[2022-04-30] MEDS: FUROSEMIDE 20 MG TABLET PEG SCH (11:11)
[2022-04-30] MEDS: ESCITALOPRAM 10 MG TABLET PEG SCH (11:11)
[2022-04-30] MEDS: amLODIPine 2.5 MG TABLET PEG SCH (11:11)
[2022-04-30] MEDS: PANTOPRAZOLE 40 MG VIAL IV SCH (11:11)
[2022-04-30] MEDS: POLYETHYLENE GLYCOL POWDER 17 GM PACK PEG SCH ×3 (11:12→22:12)
[2022-04-30] MEDS: LACTULOSE 20 GM/30 ML UDCUP PEG SCH ×2 (11:12→22:12)
[2022-04-30] MEDS: VANCOMYCIN INJ 1,000 MG in SODIUM CHLORIDE 0.9% 250 ML IV SCH (14:33)
[2022-04-30] MEDS: FUROSEMIDE 40 MG/4 ML VIAL IV SCH (18:39)
[2022-04-30] MEDS: ENOXAPARIN 40 MG/0.4 ML SYRINGE SUBCUT SCH (22:16)
[2022-05-01] MEDS: ALBUTEROL/IPRATROPIUM 3 ML NEB RESP TX SCH ×5 (00:46→23:44)
[2022-05-01] MEDS: PIPERACILLIN/TAZOBACTAM 3,375 MG in SODIUM CHLORIDE 0.9% 100 ML IV SCH ×3 (01:42→18:23)
[2022-05-01] MEDS: METOCLOPRAMIDE 10 MG/10 ML UDCUP PEG SCH ×4 (02:19→20:46)
[2022-05-01 05:00] LABS: Basophils # 0.1 10*3/uL (0.0-0.2); Basophils % 0.6 % (0.0-0.8); Eosinophils # 0.3 10*3/uL (0.0-0.87); Eosinophils % 3.6 % (0.00-10.9); Hemoglobin 11.2 GM/DL (12.0-16.0); Immature Granulocytes % 3.5 %; Immature Granulocytes Absolute 0.29 #; Lymphocytes % 23.9 % (21.3-54.2); Mean Corpuscular HGB Conc 31.1 GM/DL (32-36); Mean Corpuscular Volume 93.8 FL (87-102); Mean Platelet Volume 11.1 FL (9.6-12.0); Monocytes # 0.7 10*3/uL (0.11-0.8); Monocytes % 8.2 % (1.7-12.7); NRBC # 0.03 10*3/uL; Neutrophils % 60.2 % (38.7-73.9); Platelet Count 269 T/CUMM (130-400); Red Blood Count 3.84 MC/CUMM (3.8-5.5); Red Cell Distribution Width 14.2 % (9.3-17.3); White Blood Count 8.3 T/CUMM (4-12)
[2022-05-01] MEDS: VANCOMYCIN INJ 1,000 MG in SODIUM CHLORIDE 0.9% 250 ML IV SCH (05:13)
[2022-05-01 05:19] LABS: Calcium 9.1 MG/DL (8.5-10.1); Osmolality,Calculated 297.7 MOS/KG (273-304); Potassium 3.7 MMOL/L (3.5-5.1)
[2022-05-01] MEDS: INSULIN LISPRO 100 UNIT/ML SUBCUT SCH ×3 (05:33→18:25)
[2022-05-01] MEDS: PANTOPRAZOLE 40 MG VIAL IV SCH (10:24)
[2022-05-01] MEDS: LACTULOSE 20 GM/30 ML UDCUP PEG SCH ×2 (10:24→20:46)
[2022-05-01] MEDS: FUROSEMIDE 40 MG/4 ML VIAL IV SCH ×2 (10:25→18:24)
[2022-05-01] MEDS: POLYETHYLENE GLYCOL POWDER 17 GM PACK PEG SCH ×3 (10:26→20:45)
[2022-05-01] MEDS: amLODIPine 2.5 MG TABLET PEG SCH (10:26)
[2022-05-01] MEDS: ESCITALOPRAM 10 MG TABLET PEG SCH (10:26)
[2022-05-01] MEDS: ENOXAPARIN 40 MG/0.4 ML SYRINGE SUBCUT SCH (20:45)
[2022-05-02] MEDS: INSULIN LISPRO 100 UNIT/ML SUBCUT SCH ×4 (00:44→18:24)
[2022-05-02] MEDS: PIPERACILLIN/TAZOBACTAM 3,375 MG in SODIUM CHLORIDE 0.9% 100 ML IV SCH ×3 (01:50→18:24)
[2022-05-02] MEDS: ALBUTEROL/IPRATROPIUM 3 ML NEB RESP TX SCH ×5 (03:08→20:00)
[2022-05-02] MEDS: METOCLOPRAMIDE 10 MG/10 ML UDCUP PEG SCH ×5 (03:48→23:24)
[2022-05-02] MEDS: VANCOMYCIN INJ 1,000 MG in SODIUM CHLORIDE 0.9% 250 ML IV SCH ×2 (05:30→08:16)
[2022-05-02 05:46] LABS: Basophils % 0.4 % (0.0-0.8); Eosinophils # 0.1 10*3/uL (0.0-0.87); Eosinophils % 1.6 % (0.00-10.9); Hematocrit 33.5 VOL% (35.7-47.0); Hemoglobin 10.4 GM/DL (12.0-16.0); Immature Granulocytes Absolute 0.36 #; Lymphocytes # 1.7 10*3/uL (1.4-4.0); Lymphocytes % 19.5 % (21.3-54.2); Mean Corpuscular Volume 93.8 FL (87-102); Mean Platelet Volume 11.1 FL (9.6-12.0); Monocytes # 0.7 10*3/uL (0.11-0.8); NRBC # 0.02 10*3/uL; Neutrophils % 66.5 % (38.7-73.9); Platelet Count 240 T/CUMM (130-400); Red Blood Count 3.57 MC/CUMM (3.8-5.5); Red Cell Distribution Width 14.3 % (9.3-17.3); White Blood Count 8.9 T/CUMM (4-12)
[2022-05-02 06:18] LABS: Calcium 8.9 MG/DL (8.5-10.1); Osmolality,Calculated 291.3 MOS/KG (273-304); Potassium 2.8 MMOL/L (3.5-5.1)
[2022-05-02] MEDS ORDERED: POTASSIUM CHLORIDE 20 MEQ TABLET PO ONE (08:50)
[2022-05-02] MEDS: FUROSEMIDE 40 MG/4 ML VIAL IV SCH (10:01)
[2022-05-02] MEDS: ESCITALOPRAM 10 MG TABLET PEG SCH (10:22)
[2022-05-02] MEDS: POLYETHYLENE GLYCOL POWDER 17 GM PACK PEG SCH ×3 (10:22→20:52)
[2022-05-02] MEDS: amLODIPine 2.5 MG TABLET PEG SCH (10:22)
[2022-05-02] MEDS: LACTULOSE 20 GM/30 ML UDCUP PEG SCH (10:22)
[2022-05-02] MEDS: PANTOPRAZOLE 40 MG VIAL IV SCH (10:23)
[2022-05-02] MEDS ORDERED: POTASSIUM CHLORIDE INJ 20 MEQ in LACTATED RINGERS 1,000 ML IV SCH (11:00)
[2022-05-02] MEDS ORDERED: MAGNESIUM SULF INJ 3 GM in SODIUM CHLORIDE 0.9% 100 ML IV ONE (18:00)
[2022-05-03] MEDS: PIPERACILLIN/TAZOBACTAM 3,375 MG in SODIUM CHLORIDE 0.9% 100 ML IV SCH ×2 (00:33→10:16)
[2022-05-03] MEDS: INSULIN LISPRO 100 UNIT/ML SUBCUT SCH ×3 (00:34→12:35)
[2022-05-03] MEDS: ALBUTEROL/IPRATROPIUM 3 ML NEB RESP TX SCH ×4 (00:40→11:17)
[2022-05-03] MEDS: METOCLOPRAMIDE 10 MG/10 ML UDCUP PEG SCH ×3 (03:15→10:15)
[2022-05-03] MEDS: VANCOMYCIN INJ 1,000 MG in SODIUM CHLORIDE 0.9% 250 ML IV SCH (05:39)
[2022-05-03 06:25] LABS: Calcium 8.7 MG/DL (8.5-10.1); Osmolality,Calculated 298.6 MOS/KG (273-304); Potassium 4.6 MMOL/L (3.5-5.1)
[2022-05-03] MEDS ORDERED: FUROSEMIDE 20 MG TABLET PER TUBE SCH (09:00)
[2022-05-03] MEDS ORDERED: LACTATED RINGERS 1,000 ML IV SCH (09:00)
[2022-05-03] MEDS: amLODIPine 2.5 MG TABLET PEG SCH (10:15)
[2022-05-03] MEDS: PANTOPRAZOLE 40 MG VIAL IV SCH (10:15)
[2022-05-03] MEDS: POLYETHYLENE GLYCOL POWDER 17 GM PACK PEG SCH (10:15)
[2022-05-03] MEDS: ESCITALOPRAM 10 MG TABLET PEG SCH (10:15)
[2022-05-03 11:50] VITALS: BP 122/72
== END 2022-05-03 14:12 | DRG 177 ==
LOC: N.ED 19:35 → N.EDINP 04-26 02:22 → N.2E 04-26 15:37
PROVIDERS: ADMIT Hospitalist; ATTEND Hospitalist

== ENCOUNTER 2022-06-15 10:54 | Inpatient (IN) ==
[2022-06-15] MEDS ORDERED: SODIUM CHLORIDE 0.9% 1,000 ML IV STA (11:38)
[2022-06-15] MEDS ORDERED: ONDANSETRON 4 MG/2 ML VIAL IV STA (11:38)
[2022-06-15 11:52] LABS: Basophils % 0.1 % (0.0-0.8); Hematocrit 37.8 VOL% (35.7-47.0); Hemoglobin 11.9 GM/DL (12.0-16.0); Immature Granulocytes % 0.7 %; Immature Granulocytes Absolute 0.13 #; Lymphocytes # 1.3 10*3/uL (1.4-4.0); Lymphocytes % 7.1 % (21.3-54.2); Mean Corpuscular HGB Conc 31.5 GM/DL (32-36); Mean Corpuscular Volume 90.4 FL (87-102); Mean Platelet Volume 11.8 FL (9.6-12.0); Monocytes # 0.8 10*3/uL (0.11-0.8); Monocytes % 4.2 % (1.7-12.7); Neutrophils % 87.9 % (38.7-73.9); Platelet Count 278 T/CUMM (130-400); Red Blood Count 4.18 MC/CUMM (3.8-5.5); Red Cell Distribution Width 14.4 % (9.3-17.3); White Blood Count 18.43 T/CUMM (4-12)
[2022-06-15 11:58] LABS: Albumin 3.1 G/DL (3.4-5.0); Bilirubin,Total 0.5 MG/DL (0.20-1.00); Calcium 10.2 MG/DL (8.5-10.1); Osmolality,Calculated 298.4 MOS/KG (273-304); Potassium 3.7 MMOL/L (3.5-5.1); Total Protein 8.5 G/DL (6.4-8.2)
[2022-06-15] MEDS ORDERED: PIPERACILLIN/TAZOBACTAM 3,375 MG in SODIUM CHLORIDE 0.9% 100 ML IV STA (12:02)
[2022-06-15 12:12] LABS: Bacteria,Urine Moderate /HPF (Few); Bilirubin,Urine Negative (Negative); Blood, Urine Trace mg/dL (Negative); Glucose,Urine (UA) 500 mg/dL (Negative); Hyaline Casts,Urine 1 /LPF (0-3); Ketones,Urine Negative (Negative); Nitrite,Urine Negative (Negative); Protein,Urine 30 mg/dL (Negative); RBC,Urine <1 /HPF (0-4); Squamous Epithelial Cell,Urine Occasional /HPF (0-10); Urine Appearance Clear (Clear); Urine Color Yellow (Yellow); Urine Specific Gravity 1.015 (1.001-1.035)
[2022-06-15 12:13] LABS: Urine Urobilinogen 0.2 eU/dL (<2.0)
[2022-06-15 12:15] LABS: Band Neutrophils 38 % (0-10); Lymphocytes 7 % (20-55); Metamyelocytes 2 %; Platelet Estimate Normal; Total Cells Counted 100
[2022-06-15 12:16] LABS: Anisocytosis Slight; Macrocytosis Slight
[2022-06-15 12:41] LABS: INR 0.9; PT Patient Result 10.4 SECS (10.1-12.1); Partial Thromboplastin Time 25.2 SECS (23.7-32.9)
[2022-06-15] MEDS ORDERED: ACETAMINOPHEN 325 MG TABLET PO PRN (12:47)
[2022-06-15] MEDS ORDERED: hydrALAZINE 20 MG/1 ML VIAL IV PRN (12:47)
[2022-06-15] MEDS ORDERED: cefTRIAXone 1,000 MG in SODIUM CHLORIDE 0.9% 100 ML IV STA (12:47)
[2022-06-15] MEDS ORDERED: ONDANSETRON 4 MG/2 ML VIAL IV PRN (12:47)
[2022-06-15] MEDS ORDERED: SODIUM CHLORIDE 0.9% 2,050 ML IV ONE (13:15)
[2022-06-15] MEDS ORDERED: GLUCAGON 1 MG VIAL IM PRN (13:41)
[2022-06-15] MEDS ORDERED: DEXTROSE 10% 250 ML BAG IV PRN (13:49)
[2022-06-15] MEDS: ENOXAPARIN 40 MG/0.4 ML SYRINGE SUBCUT SCH (13:57)
[2022-06-15] MEDS: SODIUM CHLORIDE 0.9% 1,000 ML IV SCH (14:48)
[2022-06-15] MEDS: INSULIN LISPRO 100 UNIT/ML SUBCUT SCH (17:49)
[2022-06-15] MEDS: ALBUTEROL/IPRATROPIUM 3 ML NEB RESP TX SCH (20:11)
[2022-06-15] MEDS: PIPERACILLIN/TAZOBACTAM 3,375 MG in SODIUM CHLORIDE 0.9% 100 ML IV SCH (20:53)
[2022-06-15] MEDS: OMEPRAZOLE ODT 20 MG TABLET PEG SCH (20:56)
[2022-06-15] MEDS: BISACODYL 5 MG TABLET PEG SCH (20:56)
[2022-06-16] MEDS: INSULIN LISPRO 100 UNIT/ML SUBCUT SCH ×4 (00:59→17:39)
[2022-06-16] MEDS: ALBUTEROL/IPRATROPIUM 3 ML NEB RESP TX SCH ×4 (01:07→19:33)
[2022-06-16 02:02] LABS: Albumin 2.6 G/DL (3.4-5.0); Bilirubin,Total 0.5 MG/DL (0.20-1.00); Calcium 8.9 MG/DL (8.5-10.1); Osmolality,Calculated 298.6 MOS/KG (273-304); Potassium 3.6 MMOL/L (3.5-5.1)
[2022-06-16 02:21] LABS: Basophils % 0.2 % (0.0-0.8); Eosinophils # 0.1 10*3/uL (0.0-0.87); Eosinophils % 0.9 % (0.00-10.9); Hematocrit 30.7 VOL% (35.7-47.0); Immature Granulocytes % 0.5 %; Immature Granulocytes Absolute 0.06 #; Lymphocytes % 16.7 % (21.3-54.2); Mean Corpuscular HGB Conc 30.9 GM/DL (32-36); Mean Corpuscular Volume 91.1 FL (87-102); Mean Platelet Volume 11.2 FL (9.6-12.0); Monocytes # 0.8 10*3/uL (0.11-0.8); Monocytes % 6.9 % (1.7-12.7); Neutrophils % 74.8 % (38.7-73.9); Platelet Count 213 T/CUMM (130-400); Red Blood Count 3.37 MC/CUMM (3.8-5.5); Red Cell Distribution Width 14.5 % (9.3-17.3); White Blood Count 12.11 T/CUMM (4-12)
[2022-06-16 02:23] LABS: Hemoglobin 9.5 GM/DL (12.0-16.0)
[2022-06-16] MEDS: PIPERACILLIN/TAZOBACTAM 3,375 MG in SODIUM CHLORIDE 0.9% 100 ML IV SCH ×3 (03:32→21:22)
[2022-06-16] MEDS: SODIUM CHLORIDE 0.9% 1,000 ML IV SCH (07:59)
[2022-06-16] MEDS: CHOLECALCIFEROL 1,000 UNIT TABLET PEG SCH (08:52)
[2022-06-16] MEDS: POLYETHYLENE GLYCOL POWDER 17 GM PACK PEG SCH (08:52)
[2022-06-16] MEDS: OMEPRAZOLE ODT 20 MG TABLET PEG SCH ×2 (08:53→21:22)
[2022-06-16] MEDS: BISACODYL 5 MG TABLET PEG SCH ×2 (08:53→21:22)
[2022-06-16] MEDS ORDERED: amLODIPine 2.5 MG TABLET PEG SCH (09:00)
[2022-06-16] MEDS: SODIUM CHLORIDE 0.45% 1,000 ML IV SCH (10:00)
[2022-06-16] MEDS: FUROSEMIDE 20 MG TABLET PEG SCH (10:05)
[2022-06-16] MEDS: INSULIN GLARGINE 100 UNIT/ML SUBCUT SCH (10:54)
[2022-06-16] MEDS ORDERED: cefTRIAXone 1,000 MG in SODIUM CHLORIDE 0.9% 100 ML IV SCH (13:00)
[2022-06-16] MEDS: ENOXAPARIN 40 MG/0.4 ML SYRINGE SUBCUT SCH (13:43)
[2022-06-17] MEDS: ALBUTEROL/IPRATROPIUM 3 ML NEB RESP TX SCH ×4 (00:28→18:47)
[2022-06-17] MEDS: INSULIN LISPRO 100 UNIT/ML SUBCUT SCH ×4 (00:49→17:24)
[2022-06-17] MEDS: PIPERACILLIN/TAZOBACTAM 3,375 MG in SODIUM CHLORIDE 0.9% 100 ML IV SCH ×3 (03:26→20:38)
[2022-06-17] MEDS: SODIUM CHLORIDE 0.45% 1,000 ML IV SCH ×2 (10:48)
[2022-06-17] MEDS: CHOLECALCIFEROL 1,000 UNIT TABLET PEG SCH (11:35)
[2022-06-17] MEDS: POLYETHYLENE GLYCOL POWDER 17 GM PACK PEG SCH (11:35)
[2022-06-17] MEDS: BISACODYL 5 MG TABLET PEG SCH ×2 (11:35→20:39)
[2022-06-17] MEDS: INSULIN GLARGINE 100 UNIT/ML SUBCUT SCH (11:35)
[2022-06-17] MEDS: FUROSEMIDE 20 MG TABLET PEG SCH (11:35)
[2022-06-17] MEDS: OMEPRAZOLE ODT 20 MG TABLET PEG SCH ×2 (11:36→20:39)
[2022-06-17] MEDS: ENOXAPARIN 40 MG/0.4 ML SYRINGE SUBCUT SCH (13:36)
[2022-06-18] MEDS: ALBUTEROL/IPRATROPIUM 3 ML NEB RESP TX SCH ×4 (00:51→18:58)
[2022-06-18] MEDS: INSULIN LISPRO 100 UNIT/ML SUBCUT SCH ×4 (01:03→17:54)
[2022-06-18] MEDS: PIPERACILLIN/TAZOBACTAM 3,375 MG in SODIUM CHLORIDE 0.9% 100 ML IV SCH ×3 (04:23→20:41)
[2022-06-18] MEDS: SODIUM CHLORIDE 0.45% 1,000 ML IV SCH ×2 (04:29→15:44)
[2022-06-18 05:17] LABS: Basophils % 0.4 % (0.0-0.8); Eosinophils # 0.1 10*3/uL (0.0-0.87); Eosinophils % 1.4 % (0.00-10.9); Hematocrit 30.1 VOL% (35.7-47.0); Hemoglobin 9.1 GM/DL (12.0-16.0); Immature Granulocytes Absolute 0.49 #; Lymphocytes # 1.6 10*3/uL (1.4-4.0); Lymphocytes % 16.3 % (21.3-54.2); Mean Corpuscular HGB Conc 30.2 GM/DL (32-36); Mean Corpuscular Volume 92.6 FL (87-102); Mean Platelet Volume 10.9 FL (9.6-12.0); Monocytes # 0.6 10*3/uL (0.11-0.8); Monocytes % 6.5 % (1.7-12.7); Neutrophils % 70.4 % (38.7-73.9); Platelet Count 245 T/CUMM (130-400); Red Blood Count 3.25 MC/CUMM (3.8-5.5); Red Cell Distribution Width 14.4 % (9.3-17.3); White Blood Count 9.87 T/CUMM (4-12)
[2022-06-18 05:42] LABS: Calcium 9.5 MG/DL (8.5-10.1); Osmolality,Calculated 292.7 MOS/KG (273-304); Potassium 3.5 MMOL/L (3.5-5.1)
[2022-06-18] MEDS: CHOLECALCIFEROL 1,000 UNIT TABLET PEG SCH (09:53)
[2022-06-18] MEDS: OMEPRAZOLE ODT 20 MG TABLET PEG SCH ×2 (09:53→20:43)
[2022-06-18] MEDS: POLYETHYLENE GLYCOL POWDER 17 GM PACK PEG SCH (09:53)
[2022-06-18] MEDS: FUROSEMIDE 20 MG TABLET PEG SCH (09:53)
[2022-06-18] MEDS: INSULIN GLARGINE 100 UNIT/ML SUBCUT SCH (09:53)
[2022-06-18] MEDS: BISACODYL 5 MG TABLET PEG SCH ×2 (09:53→20:42)
[2022-06-18] MEDS ORDERED: FLUCONAZOLE 40 MG/ML 35 ML/BOTTLE PO ONE (14:36)
[2022-06-18] MEDS: ENOXAPARIN 40 MG/0.4 ML SYRINGE SUBCUT SCH (16:05)
[2022-06-19] MEDS: ALBUTEROL/IPRATROPIUM 3 ML NEB RESP TX SCH ×4 (01:25→19:10)
[2022-06-19] MEDS: INSULIN LISPRO 100 UNIT/ML SUBCUT SCH ×5 (01:34→23:37)
[2022-06-19] MEDS: PIPERACILLIN/TAZOBACTAM 3,375 MG in SODIUM CHLORIDE 0.9% 100 ML IV SCH ×3 (04:26→23:36)
[2022-06-19] MEDS: SODIUM CHLORIDE 0.45% 1,000 ML IV SCH (07:10)
[2022-06-19] MEDS: INSULIN GLARGINE 100 UNIT/ML SUBCUT SCH (09:17)
[2022-06-19] MEDS: OMEPRAZOLE ODT 20 MG TABLET PEG SCH ×2 (09:17→23:36)
[2022-06-19] MEDS: FLUCONAZOLE 40 MG/ML 35 ML/BOTTLE PO SCH (09:17)
[2022-06-19] MEDS: POLYETHYLENE GLYCOL POWDER 17 GM PACK PEG SCH (09:17)
[2022-06-19] MEDS: CHOLECALCIFEROL 1,000 UNIT TABLET PEG SCH (09:17)
[2022-06-19] MEDS: BISACODYL 5 MG TABLET PEG SCH ×2 (09:20→23:36)
[2022-06-19] MEDS: FUROSEMIDE 20 MG TABLET PEG SCH (09:20)
[2022-06-19] MEDS: ENOXAPARIN 40 MG/0.4 ML SYRINGE SUBCUT SCH (17:39)
[2022-06-20] MEDS: ALBUTEROL/IPRATROPIUM 3 ML NEB RESP TX SCH ×4 (00:29→21:29)
[2022-06-20] MEDS: PIPERACILLIN/TAZOBACTAM 3,375 MG in SODIUM CHLORIDE 0.9% 100 ML IV SCH ×3 (05:27→21:21)
[2022-06-20] MEDS: INSULIN LISPRO 100 UNIT/ML SUBCUT SCH ×3 (05:46→17:35)
[2022-06-20 06:13] LABS: Calcium 9.6 MG/DL (8.5-10.1); Osmolality,Calculated 291.7 MOS/KG (273-304); Potassium 3.8 MMOL/L (3.5-5.1)
[2022-06-20] MEDS: CHOLECALCIFEROL 1,000 UNIT TABLET PEG SCH (10:18)
[2022-06-20] MEDS: FUROSEMIDE 20 MG TABLET PEG SCH (10:19)
[2022-06-20] MEDS: BISACODYL 5 MG TABLET PEG SCH ×2 (10:19→21:11)
[2022-06-20] MEDS: OMEPRAZOLE ODT 20 MG TABLET PEG SCH ×2 (10:19→21:11)
[2022-06-20] MEDS: POLYETHYLENE GLYCOL POWDER 17 GM PACK PEG SCH (10:19)
[2022-06-20] MEDS: FLUCONAZOLE 40 MG/ML 35 ML/BOTTLE PO SCH (10:19)
[2022-06-20] MEDS: INSULIN GLARGINE 100 UNIT/ML SUBCUT SCH (10:21)
[2022-06-20] MEDS: ENOXAPARIN 40 MG/0.4 ML SYRINGE SUBCUT SCH (14:29)
[2022-06-20] MEDS ORDERED: LACTATED RINGERS 1,000 ML IV SCH (16:30)
[2022-06-20] MEDS: DEXTROSE 5% LACTATED RINGERS 1,000 ML IV SCH (17:30)
[2022-06-21] MEDS: ALBUTEROL/IPRATROPIUM 3 ML NEB RESP TX SCH ×4 (02:37→20:36)
[2022-06-21] MEDS: INSULIN LISPRO 100 UNIT/ML SUBCUT SCH ×5 (03:34→23:39)
[2022-06-21] MEDS: PIPERACILLIN/TAZOBACTAM 3,375 MG in SODIUM CHLORIDE 0.9% 100 ML IV SCH ×3 (03:50→22:39)
[2022-06-21] MEDS: OMEPRAZOLE ODT 20 MG TABLET PEG SCH ×2 (09:13→22:40)
[2022-06-21] MEDS: POLYETHYLENE GLYCOL POWDER 17 GM PACK PEG SCH (09:13)
[2022-06-21] MEDS: BISACODYL 5 MG TABLET PEG SCH ×2 (09:13→22:40)
[2022-06-21] MEDS: CHOLECALCIFEROL 1,000 UNIT TABLET PEG SCH (09:13)
[2022-06-21] MEDS: FUROSEMIDE 20 MG TABLET PEG SCH (09:13)
[2022-06-21] MEDS: INSULIN GLARGINE 100 UNIT/ML SUBCUT SCH (09:14)
[2022-06-21] MEDS: FLUCONAZOLE 40 MG/ML 35 ML/BOTTLE PO SCH (09:14)
[2022-06-21] MEDS: DEXTROSE 5% LACTATED RINGERS 1,000 ML IV SCH (14:42)
[2022-06-22] MEDS: ALBUTEROL/IPRATROPIUM 3 ML NEB RESP TX SCH ×3 (02:30→13:31)
[2022-06-22] MEDS: PIPERACILLIN/TAZOBACTAM 3,375 MG in SODIUM CHLORIDE 0.9% 100 ML IV SCH ×2 (04:38→11:53)
[2022-06-22] MEDS: INSULIN LISPRO 100 UNIT/ML SUBCUT SCH ×2 (08:54→11:59)
[2022-06-22] MEDS: FUROSEMIDE 20 MG TABLET PEG SCH (09:13)
[2022-06-22] MEDS: CHOLECALCIFEROL 1,000 UNIT TABLET PEG SCH (09:13)
[2022-06-22] MEDS: BISACODYL 5 MG TABLET PEG SCH (09:13)
[2022-06-22] MEDS: FLUCONAZOLE 40 MG/ML 35 ML/BOTTLE PO SCH (09:14)
[2022-06-22] MEDS: INSULIN GLARGINE 100 UNIT/ML SUBCUT SCH (09:15)
[2022-06-22] MEDS: POLYETHYLENE GLYCOL POWDER 17 GM PACK PEG SCH (09:16)
[2022-06-22] MEDS: OMEPRAZOLE ODT 20 MG TABLET PEG SCH (09:16)
[2022-06-22 11:40] VITALS: BP 140/65
== END 2022-06-22 14:10 | DRG 872 ==
LOC: N.ED 10:54 → SUATTDRO 12:47 → N.EDINP 12:47 → N.3E 16:15
PROVIDERS: ADMIT Internal Medicine; ATTEND Emergency Medicine